=== PATIENT | female | born 1975 | race Caucasian/White ===

== ENCOUNTER → 2016-11-09 | Outpatient (CLI) | payer BC ==
--- NOTE | 2016-11-10 09:00 | MM ---
Reason for exam: screening (asymptomatic). Last mammogram was performed 2 years and 3 months ago. History: Patient history of endometrial cancer. Took hormonal contraceptives for 3 years. Physical Findings: A clinical breast exam by your physician is recommended on an annual basis and results should be correlated with mammographic findings. MG Screening Mammo w CAD Bilateral CC and MLO view(s) were taken. Prior study comparison: August 13, 2014, bilateral MG screening mammo w CAD. June 28, 2000, bilateral diagnostic mammogram. The breast tissue is heterogeneously dense. This may lower the sensitivity of mammography. No significant changes when compared with prior studies. ASSESSMENT: Negative, BI-RAD 1 RECOMMENDATION: Routine screening mammogram of both breasts in 1 year.
== END | disposition home or self-care (01) ==
LOC: RADMAMWWP 08:28
PROVIDERS: ATTEND Internal Medicine
DX: Z12.31 Encounter for screening mammogram for malignant neoplasm of breast (principal)

== ENCOUNTER → 2016-11-30 | Outpatient (CLI) | payer BC ==
[2016-11-23 15:09] VITALS: BMI 22.3
[2016-11-30 12:48] VITALS: BP 108/67; PULSE 70; RESP 18; TEMP 97.8
--- NOTE | 2016-11-30 13:39 | P.CONS ---
History of Present Illness - Reason for Consult Consult date: 11/30/16 - History of Present Illness This is an initial consultation visit for this 42 years old female with a chronic history of severe low back pain with radiation to the left lower extremity, [place] with burning sensation, this problem started May 2016, started after she fell, and she continued to have severe low back pain, she is currently on multiple pain medication and none of them helping enough to control her pain,, the pain is constant and increases with any activity, and is interfering with her ability to do activities of daily livings, she denies any change in the bowel movement or urination she denies any fever or night sweats, but she feels some weakness in her left lower extremity Past Medical History Past Medical History: No Reported History Additional Past Medical History / Comment(s): chronic back pain,steroids w/in 3 mos, cervical radiculopathy History of Any Multi-Drug Resistant Organisms: None Reported Past Surgical History: Hysterectomy Additional Past Surgical History / Comment(s): cervical fusion. 09-03-15 ant cervical decompression C ,REMOVAL OF HARDWARE. Past Anesthesia/Blood Transfusion Reactions: Motion Sickness Past Psychological History: No Psychological Hx Reported Smoking Status: Current every day smoker Past Alcohol Use History: None Reported, Rare Additional Past Alcohol Use History / Comment(s): smoker past 3 years 1 ppd Past Drug Use History: None Reported - Past Family History Mother Family Medical History: No Reported History Medications and Allergies Home Medications Medication Instructions Recorded Confirmed Type Carisoprodol [Soma] 350 mg PO TID PRN 02/03/15 11/30/16 History Gabapentin [Neurontin] 600 mg PO QID 02/03/15 11/30/16 History HYDROcodone/APAP 5-325MG [[place] 1 tab PO TID 11/23/16 11/30/16 History 5-325] Loratadine [Claritin] 10 mg PO DAILY 11/23/16 11/30/16 History Multivitamins, Thera [Multivitamin] 1 tab PO DAILY 11/23/16 11/30/16 History Allergies Allergy/AdvReac Type Severity Reaction Status Date / Time NSAIDS (Non-Steroidal Allergy Dyspnea Verified 11/23/16 14:55 Anti-Inflamma Penicillins Allergy Rash/Hives Verified 11/23/16 14:55 Physical Exam Vitals: Vital Signs Temp Pulse Resp BP Pulse Ox 11/30/16 12:42 97.8 F 70 18 108/67 98 Social history : smoker , NO ETOH , NO Illegal drugs use . Review of Systems : 1- Constitutional : no chills , no fever , no night sweats , 2- Ears : no ear discharge , no change in hearing 3-Nose, Mouth ,Throat ; no bleeding gums, no sore throat , no epistaxis , 4-Cardiovascular : Denies chest pain, , no orthopnea , no palpitation 5-Respiratory : Denies cough , no dyspnea , no hemoptysis 6-Gastrointestinal :, no change in bowel habits , no coffee- ground emesis . 7-Genitourinary : No hematuria , no discharge , no incontinence, 8-Musculoskeletal : No gait dysfunction , report low back pain , 9- Neurological : no ataxia , no tremor , no sezure , 10-Psychatric , no suicidal ideation no hallucination 11- Endocrine : no cold intolerence , no polyuria , no polydypsia , 12-Hematologic : no easy bleeding , no easy brusing , 13-Allergic / immunology : no angioedema , no wheezing ,no allergic rhinitis 14-Integumentary : no brttle nails , no change hair / nails , no foot/leg ulcers . Physical Examinations : 1-Constitutional : Cooperative , not in acute distress . 2-HEENT : nech ; supple , no Lymphadenopathy , no Thyromegaly , eyes , no icterus, no photophobia . ENT : , normal oropharynx , no Thrush 3- Respiratory : Chest clear to auscultations Bilaterally , no wheezing . 4- Cardiovascular : regular rate and rhythem , S1 , S2 , no S3 , no S4. 5- Gastrointestinal: abdomen soft no tenderness , no organomegally . 6- Genitourinary : De[place]red . 7-Integumentary : No cellulitis , no ulcers , normal skin turgor , no cyanotic . 8- neurologic : Cranial nerve II to XII intact , no focal neurological deffecit 9-psychatric : alert , oriented X 3 , appropriate affect , intact judgment and insight . 10-Lymphatic : no Lymphadenopathy. 11- musculoskeltal: normal gait , exams of the cervical spine = motor stregnth in the deltoid and biceps, normal right side , normal Left side exams of the Lumber spine = moter stegnth lower extremities , thigh and legs 5/5 Right side , 4/5 Left side deep tendon reflexes : normal Knee Jerk , normal ankle Jerk positive lumber facet Loading Test Range of motion of the lumbar spine Flexion 30 degrees, extension 10 degrees strait leg raising test , positive at 30 degree on the left side, right side 45 Fabere test positive RT and positive LT . Multiple trigger point identified in the lumbar paravertebral muscles Results Comments: MRI of the lumbar spine done 08/02/2016 L4 5 left lateral disc protrusion and facet hypertrophy, L5-S1 mild facet hypertrophy Assessment and Plan Plan: Assessment and plan = - Chronic low back pain secondary to lumbar degenerative disc disease , lumbar spondylosis with facet arthropathy without myelopathy , myofascial pain syndrome - diagnoses, prognosis, and treatment options including but not limited to physical therapy, surgical interventions, interventional therapies and medication management discussed with the patient and all questions answered to the patient's satisfaction. -medication refile = patient is getting medications refilled from her primary care and she denies any side effect of the medication -procedure= she could benefit from trigger point injections, and lumbar epidural steroid injection under fluoroscopy guidance (left sided paramedian approach at the L4-L5 levels ), procedure risk and benefits and alternatives discussed with the patient and she agreed with proceeding Time with Patient: Greater than 30
== END | disposition home or self-care (01) ==
LOC: PNWHC3 12:31
PROVIDERS: ATTEND Specialist
DX: G89.29 Other chronic pain (principal); M51.36 Other intervertebral disc degeneration, lumbar region; M47.816 Spondylosis without myelopathy or radiculopathy, lumbar region; M46.96 Unspecified inflammatory spondylopathy, lumbar region; M79.1 Myalgia; F17.200 Nicotine dependence, unspecified, uncomplicated; Z88.0 Allergy status to penicillin; Z88.6 Allergy status to analgesic agent; Z79.899 Other long term (current) drug therapy
CPT/HCPCS: 99211

== ENCOUNTER 2017-01-12 07:45 | Day surgery (SDC) | payer BC ==
[2017-01-07 15:15] VITALS: BMI 23.8
[2017-01-12 08:42] VITALS: RESP 18; TEMP 97.8
[2017-01-12] MEDS ORDERED: LACTATED RINGERS 1,000 ML IV ONE (08:52)
[2017-01-12] MEDS ORDERED: LIDOCAINE 1% 20 ML VIAL (10MG/ML) FOR IV START INTRADERMA ONE (08:52)
[2017-01-12] MEDS ORDERED: LACTATED RINGERS 1,000 ML IV SCH (09:15)
[2017-01-12] MEDS ORDERED: MIDAZOLAM 2 MG/2 ML VIAL ONE (09:36)
[2017-01-12] MEDS ORDERED: fentaNYL (PF) 50 MCG/ML 2 ML AMP ONE (09:36)
[2017-01-12] MEDS ORDERED: TRIAMCINOLONE ACETONIDE 40 MG/ML 1 ML VIAL ONE (09:36)
[2017-01-12] MEDS ORDERED: IOHEXOL 180 MG/ML 1 ML ML ONE (09:36)
[2017-01-12] MEDS ORDERED: BUPIVACAINE (PF) 0.25% 30 ML VIAL ONE (09:36)
--- NOTE | 2017-01-12 09:51 | P.PCN ---
Date of Procedure: 01/12/17 Preoperative Diagnosis: Lumbar radiculopathy Myofascial pain Postoperative Diagnosis: Same as above Procedure(s) Performed: Lumbar epidural steroid injection under fluoroscopic guidance Anesthesia: MAC Surgeon: Joselo Hook Pathology: none sent Condition: stable Disposition: PACU Description of Procedure: The patient was seen in preoperative holding area consent was obtained then she was brought into the procedure room and placed in prone position. Skin was prepped with Betadine 3 and draped in a sterile manner. Lidocaine 1% was used to numb the skin over the target point was at the L4 5 level in the left paramedian approach. I used 20-gauge 3-1/2 inch ToOPTIMIZERxy epidural needle with loss -of-resistance to air to identify the epidural space. There was positive loss- of-resistance to air at about 5 cm from skin negative aspiration for any CSF or blood negative paresthesia. I then injected 1 mL of Omnipaque which showed typical epidurogram on AP and lateral views of fluoroscopy after that I injected 80 mg of Kenalog +2 MLS of Marcaine 0.25% +4 MLS of preservative free normal saline to a total volume of 7 MLS in epidural space. Patient tolerated procedure well. Then trigger point injections were done on the lumbar paravertebral musculature 1 on the right unknown on the left side of the mid lumbar spine using 2 mL of Marcaine 0.25% +25-gauge needle.
[2017-01-12] MEDS ORDERED: IV FLUID CONTINUATION 1,000 ML IV ONE (09:56)
--- NOTE | 2017-01-12 10:06 | FL ---
EXAMINATION TYPE: FL guided pain mgmt statistic DATE OF EXAM: 01/12/2017 9:50 AM CLINICAL HISTORY: Low back pain. TECHNIQUE: Fluoroscopy. COMPARISON: None. FINDINGS: Fluoroscopic guidance was provided during pain relief procedure performed by Dr. Hook. A total of 3 seconds of fluoroscopic time was utilized during the procedure and two spot images are acquired. Images acquired shows needle localization at level of L4-L5 epidural space from posterior approach. IMPRESSION: As Above.
[2017-01-12 10:12] VITALS: BP 100/70; PULSE 68
--- NOTE | 2017-01-18 14:35 | CDI ---
Documentation Clarification Dr Hook, We need you to dictate addendum to procedure note to clarify how many trigger points were injected. Your dictation states " 1 on the right and UNKNOWN on the left." I think that Filiberto heard it wrong and it should maybe be 1 on the left. Please do an addendum to your procedure note to correct this. Thank you, Ariana Cantro [employer] Official, Cordelia [phone] [facility]
== END 2017-01-12 10:30 | disposition home or self-care (01) ==
LOC: ORPAIN 07:45
PROVIDERS: ATTEND Anesthesiology
DX: M54.16 Radiculopathy, lumbar region (principal); M79.1 Myalgia; Z88.0 Allergy status to penicillin; Z88.6 Allergy status to analgesic agent
CPT/HCPCS: 20553; 62323; J2250; J3301; Q9965; J3010

== ENCOUNTER 2017-02-14 06:35 | Day surgery (SDC) | payer BC ==
[2017-02-10 13:32] VITALS: BMI 23.8
[2017-02-14 07:40] VITALS: TEMP 97.4
[2017-02-14] MEDS ORDERED: LACTATED RINGERS 1,000 ML IV SCH (08:00)
[2017-02-14] MEDS ORDERED: BUPIVACAINE (PF) 0.5% 30 ML VIAL ONE (08:09)
[2017-02-14] MEDS ORDERED: MIDAZOLAM 2 MG/2 ML VIAL ONE (08:09)
[2017-02-14] MEDS ORDERED: fentaNYL (PF) 50 MCG/ML 2 ML AMP ONE (08:09)
[2017-02-14] MEDS ORDERED: TRIAMCINOLONE ACETONIDE 40 MG/ML 1 ML VIAL ONE (08:09)
[2017-02-14] MEDS ORDERED: IOHEXOL 180 MG/ML 1 ML ML ONE (08:09)
[2017-02-14] MEDS ORDERED: IV FLUID CONTINUATION 550 ML IV ONE (08:29)
[2017-02-14 08:45] VITALS: BP 95/50; RESP 18
[2017-02-14 09:08] VITALS: PULSE 63
--- NOTE | 2017-02-14 11:59 | FL ---
Fluoroscopy INDICATION: Pain FINDINGS: Fluoroscopy time: 8 seconds. Images obtained: 3. IMPRESSIONS: 1. Documentation of fluoroscopy.
--- NOTE | 2017-02-22 08:05 | P.PCN ---
Date of Procedure: 02/14/17 Surgeon: Alfred Rendon Pathology: none sent Condition: stable Disposition: PACU Description of Procedure: PREOPERATIVE DIAGNOSIS: 1-Lumbar radiculitis. 2-Myofascial pain syndrome, bilateral paravertebral muscles and quadratus lumborum POSTOPERATIVE DIAGNOSIS: same PROCEDURE 1. Lumbar epidural steroid injection under fluoroscopic guidance at the L4-L5 level. 2. Lumbar epidurogram. 3. Lumbar paravertebral muscle and quadratus lumborum trigger point injections ( total of 4). ANESTHESIA: Local with 1% lidocaine; IV sedation with Versed/fentanyl. EBL: Minimal PROCEDURE INDICATION: The patient with low back pain and radiculitis symptoms unresponsive to conservative treatment. Fluoroscopy was used to optimize visualization of the needle placement and to maximize safety. PROCEDURE DESCRIPTION / TECHNIQUE: The patient was seen and identified in the preoperative area. Risks, benefits, complications, and alternatives were discussed with the patient, including but not limited to bleeding, infection, nerve damage, allergic reactions to medications, and incomplete pain relief. The patient agreed to proceed with the procedure and signed the consent after all questions were answered. IV was started, and vital signs were stable. Patient was taken to the OR and time out was completed to confirm patient position, procedure, laterality of pain, and allergies. The patient was placed in the prone position on procedure table and a pillow was placed under the abdomen to reduce lumbar lordosis. The lumbosacral area was prepped and draped in the usual sterile fashion. Critical pause was taken. Vital signs were closely monitored during the procedure. Conscious sedation was used during the procedure to decrease patients anxiety. Using anterior-posterior fluoroscopy, the L4-L5 interlaminar space was identified and the skin over this site was marked and then infiltrated with 1% lidocaine subcutaneously. Subsequently, a 20-gauge Tuohy epidural needle was inserted and advanced toward the epidural space using the Loss of resistance technique and guided by AP and lateral fluoroscopy. The correct needle position in the epidural space was verified with the injection of 2 mL of the water soluble contrast dye Omnipaque 300 contrast and observing an excellent epidurogram with the epidural spread of the dye, after negative aspiration for blood and CSF and in the absence of paresthesias. Again after negative aspiration, a 8 ml mixture containing 40 mg of Kenalog and 5 ml of preservative free Normal Saline, and 2 ml of preservative free lidocaine 1% solution was injected and a washout of epidurogram was seen. Needle was withdrawn intact, skin was cleansed, and bandages were applied. After this, each of the previously marked areas over the trigger points in the low back was prepped and draped in the usual sterile fashion. Each point was then infiltrated with 1% plain lidocaine using a 25g needle. After this, each point was entered with the same 25g needle and after a catch was felt, dry needling was performed. After negative aspiration at each point, 1 ml of a total of 4 ml (combination of 3 ml 0.5% bupivacaine and 40 mg Kenalog was injected in each area. Needle was withdrawn intact each time, skin was cleansed , and bandages were applied. COMPLICATIONS: None COMMENTS: DISPOSITION / PLANS: The patient was placed in a supine position and transferred to the recovery area in a stable condition for observation. There was no evidence of lower extremity motor or sensory deficit after the procedure. Patient was discharged from the recovery room after meeting discharge criteria. Home discharge instructions were given to the patient by the staff. The patient was reexamined prior to discharge and there were no issues. The patient will schedule a third injection in approximately 2-4 weeks.
== END 2017-02-14 09:09 | disposition home or self-care (01) ==
LOC: ORPAIN 06:35
PROVIDERS: ATTEND Anesthesiology
DX: G89.29 Other chronic pain (principal); M54.16 Radiculopathy, lumbar region; M79.1 Myalgia; F32.9 Major depressive disorder, single episode, unspecified; F41.9 Anxiety disorder, unspecified; Z72.0 Tobacco use; Z79.891 Long term (current) use of opiate analgesic; Z79.899 Other long term (current) drug therapy; Z88.6 Allergy status to analgesic agent; Z88.0 Allergy status to penicillin
CPT/HCPCS: 20553; 62323; J2250; J3301; Q9965; J3010

== ENCOUNTER 2017-02-22 14:26 | Emergency (ER) | payer BC ==
[2017-02-22 14:37] VITALS: RESP 18
[2017-02-22] MEDS ORDERED: HYDROmorphone 1 MG/ML 1 ML SYRINGE IVP STA ×2 (14:55→15:45)
[2017-02-22] MEDS ORDERED: DIAZEPAM 5 MG/ML 2 ML SYRINGE IVP STA (14:55)
--- NOTE | 2017-02-22 15:14 | ED ---
Back Pain HPI - General Chief Complaint: Back Pain/Injury Stated Complaint: LOW BACK PAIN, NAUSEA Time Seen by Provider: 02/22/17 14:40 Source: patient, RN notes reviewed Mode of arrival: wheelchair Limitations: no limitations - History of Present Illness Initial Comments: This a 41-year-old female presents emergency Department chief complaint back pain. Patient states that she was walking up her steps and had sudden onset of low back pain in the middle. Patient states that radiates down both of her legs to her feet. Patient states she has chronic back problems in which she's been told she's had herniated disc at L4-L5 and L5-S1 in spinal stenosis. Patient states she sees pain management and discharge injections one week ago. She states right after the pain was onset that she had sensation that she needs to urinate and felt that she may have leaked broke was not sure. Now she states that she is unable to urinate. She's unsure if this is secondary to pain. She has increased pain with range of motion. Patient also states that she has some abdominal discomfort. Patient had some nausea vomiting secondary to pain. Patient is on [place] currently. Patient denies any saddle anesthesias or lower extremity paresthesias. - Related Data Home Medications Medication Instructions Recorded Confirmed Gabapentin [Neurontin] 600 mg PO BID 02/03/15 02/22/17 Multivitamins, Thera [Multivitamin] 1 tab PO DAILY 11/23/16 02/22/17 HYDROcodone/APAP 7.5-325MG [[place] 1 tab PO TID 02/10/17 02/22/17 7.5-325] Acetaminophen Tab [Tylenol Tab] 650 mg PO Q6H PRN 02/22/17 02/22/17 Previous Rx's Medication Instructions Recorded Cyclobenzaprine [Flexeril] 10 mg PO TID PRN #15 tab 02/22/17 methylPREDNISolone [Medrol Dose 4 mg PO DIRECTED #1 pack 02/22/17 Pack] Allergies Allergy/AdvReac Type Severity Reaction Status Date / Time NSAIDS (Non-Steroidal Allergy Dyspnea Verified 02/22/17 15:32 Anti-Inflamma Penicillins Allergy Rash/Hives Verified 02/22/17 15:32 Review of Systems ROS Statement: Those systems with pertinent positive or pertinent negative responses have been documented in the HPI. ROS Other: All systems not noted in ROS Statement are negative. Past Medical History Past Medical History: No Reported History Additional Past Medical History / Comment(s): chronic back pain, migraines, degenerative and herniated discs, spinal stenosis History of Any Multi-Drug Resistant Organisms: None Reported Past Surgical History: Back Surgery, Hysterectomy, Tonsillectomy Additional Past Surgical History / Comment(s): cervical fusion and cervical decompression C 4-5-6, REMOVAL OF HARDWARE. and addition of hardware Past Anesthesia/Blood Transfusion Reactions: Motion Sickness Past Psychological History: Anxiety Smoking Status: Current every day smoker Past Alcohol Use History: None Reported Additional Past Alcohol Use History / Comment(s): smoker past 3 years, 1/2 ppd Past Drug Use History: None Reported - Past Family History Mother Family Medical History: No Reported History Father Family Medical History: No Reported History General Exam Limitations: no limitations General appearance: alert, in no apparent distress Head exam: Present: atraumatic, normocephalic, normal inspection Respiratory exam: Present: normal lung sounds bilaterally. Absent: respiratory distress, wheezes, rales, rhonchi, stridor Cardiovascular Exam: Present: regular rate, normal rhythm, normal heart sounds. Absent: systolic murmur, diastolic murmur, rubs, gallop, clicks GI/Abdominal exam: Present: soft, tenderness (Mild suprapubic), normal bowel sounds. Absent: distended, guarding, rebound, rigid Back exam: Present: tenderness (Tenderness of lumbar spine), paraspinal tenderness, vertebral tenderness. Absent: full ROM (decreased range of motion secondary to pain), CVA tenderness (R), CVA tenderness (L) Neurological exam: Present: alert, oriented X3, CN II-XII intact, reflexes normal. Absent: motor sensory deficit Skin exam: Present: warm, dry, intact, normal color. Absent: rash Course Vital Signs 02/22/17 14:35 Temperature 98.1 F Pulse Rate 104 H Respiratory 18 Rate Blood Pressure 117/67 O2 Sat by Pulse 100 Oximetry - Reevaluation(s) Reevaluation #1: 02/22/17 17:00 Patient was able to urinate unknown no difficulty after receiving pain medication. Medical Decision Making - Medical Decision Making 41-year-old female presented for back pain. Patient has no acute changes on CT. Patient able to urinate by self. Patient was for she needs a rectal exam to check rectal tone though she declines. Patient will be discharged follow-up with her pain management/surgeon.. - Lab Data Result diagrams: 02/22/17 15:07 02/22/17 15:07 Lab Results 02/22/17 02/22/17 02/22/17 Range/Units 15:07 15:07 15:41 WBC 13.6 H (3.8-10.6) k/uL RBC 4.62 (3.80-5.40) m/uL Hgb 15.4 (11.4-16.0) gm/dL Hct 44.9 (34.0-46.0) % MCV 97.3 (80.0-100.0) fL MCH 33.2 (25.0-35.0) pg MCHC 34.2 (31.0-37.0) g/dL RDW 13.6 (11.5-15.5) % Plt Count 421 (150-450) k/uL Neutrophils % 76 % Lymphocytes % 18 % Monocytes % 4 % Eosinophils % 1 % Basophils % 0 % Neutrophils # 10.3 H (1.3-7.7) k/uL Lymphocytes # 2.5 (1.0-4.8) k/uL Monocytes # 0.5 (0-1.0) k/uL Eosinophils # 0.1 (0-0.7) k/uL Basophils # 0.0 (0-0.2) k/uL Sodium 140 (137-145) mmol/L Potassium 3.8 (3.5-5.1) mmol/L Chloride 107 (98-107) mmol/L Carbon Dioxide 21 L (22-30) mmol/L Anion Gap 12 mmol/L BUN 15 (7-17) mg/dL Creatinine 0.51 L (0.52-1.04) mg/dL Est GFR (MDRD) Af Amer >60 (>60 ml/min/1.73 sqM) Est GFR (MDRD) Non-Af >60 (>60 ml/min/1.73 sqM) Glucose 100 H (74-99) mg/dL Calcium 10.3 H (8.4-10.2) mg/dL Urine Color Light Yellow Urine Appearance Clear (Clear) Urine pH 6.5 (5.0-8.0) Ur Specific [place] 1.005 (1.001-1.035) Urine Protein Negative (Negative) Urine Glucose (UA) Negative (Negative) Urine Ketones Trace H (Negative) Urine Blood Negative (Negative) Urine Nitrite Negative (Negative) Urine Bilirubin Negative (Negative) Urine Urobilinogen <2.0 (<2.0) mg/dL Ur Leukocyte Esterase Negative (Negative) Disposition Clinical Impression: Strain of lumbar region Disposition: HOME SELF-CARE Condition: Stable Instructions: Acute Low Back Pain (ED) Additional Instructions: Please return to the Emergency Department if symptoms worsen or any other concerns. Prescriptions: Cyclobenzaprine [Flexeril] 10 mg PO TID PRN #15 tab PRN Reason: Muscle Spasm methylPREDNISolone [Medrol Dose Pack] 4 mg PO DIRECTED #1 pack Time of Disposition: 17:04
[2017-02-22 15:17] LABS: Basophils % (A) 0 %; CH 33.5; CHCM 34.6; Eosinophils # (A) 0.1 k/uL (0-0.7); Eosinophils % (A) 1 %; HCT 44.9 % (34.0-46.0); HDW 2.14; HGB 15.4 gm/dL (11.4-16.0); Luc # (Auto) 0.15; Luc % (Auto) 1; Lymphocytes # (A) 2.5 k/uL (1.0-4.8); Lymphocytes % (A) 18 %; MCH 33.2 pg (25.0-35.0); MCHC 34.2 g/dL (31.0-37.0); MCV 97.3 fL (80.0-100.0); Mean Platelet Volume 6.8; Monocytes # (A) 0.5 k/uL (0-1.0); Monocytes % (A) 4 %; Neutrophils # (A) 10.3 k/uL (1.3-7.7); Neutrophils % (A) 76 %; RBC 4.62 m/uL (3.80-5.40); RDW 13.6 % (11.5-15.5); WBC 13.6 k/uL (3.8-10.6); WBC (Perox) 13.63
[2017-02-22 15:31] LABS: Anion Gap 12 mmol/L; Blood Urea Nitrogen 15 mg/dL (7-17); Calcium 10.3 mg/dL (8.4-10.2); Carbon Dioxide 21 mmol/L (22-30); Chloride 107 mmol/L (98-107); Glucose 100 mg/dL (74-99); Non-African American GFR(MDRD) >60 (>60 ml/min/1.73 sqM); Potassium 3.8 mmol/L (3.5-5.1); Sodium 140 mmol/L (137-145)
[2017-02-22 16:01] LABS: Appearance,Urine Clear (Clear); Bilirubin,Urine Negative (Negative); Glucose,Urine (UA) Negative (Negative); Ketones,Urine Trace (Negative); Leukocyte Esterase,Urine Negative (Negative); Nitrite,Urine Negative (Negative); PH, Urine 6.5 (5.0-8.0); Protein,Urine Negative (Negative); Specific Gravity,Urine 1.005 (1.001-1.035); UA Billing (MACRO vs. MICRO) CHEM; Urobilinogen,Urine <2.0 mg/dL (<2.0)
--- NOTE | 2017-02-22 16:34 | CT ---
EXAMINATION TYPE: CT lumbar spine wo con DATE OF EXAM: 02/22/2017 4:24 PM COMPARISON: NONE HISTORY: Low back pain CT DLP: 344.8 mGycm Automated exposure control for dose reduction was used. FINDINGS: There are 5 lumbar type vertebra identified. Lumbar spine shows satisfactory alignment without eviden ce of acute fracture or dislocation. Vertebral body heights and disc space heights are maintained. No large posterior disc herniations are seen on sagittal images. No significant spurring is present. Review of axial images shows mild facet arthropathy L3-L4 through L5-S1 levels. Spinal canal is prese rved and bilateral neural foramina are patent. IMPRESSION: SOME MILD MULTILEVEL FACET ARTHROPATHY IN THE MID TO LOWER LUMBAR SPINE OTHERWISE UNREMARKABLE STUDY.
[2017-02-22 17:13] VITALS: BP 97/60; PULSE 77; TEMP 96.9
== END 2017-02-22 17:13 | disposition home or self-care (01) ==
LOC: EC 14:26
DX: S39.012A Strain of muscle, fascia and tendon of lower back, initial encounter (principal); G89.29 Other chronic pain; F17.200 Nicotine dependence, unspecified, uncomplicated; Z79.891 Long term (current) use of opiate analgesic; Z79.899 Other long term (current) drug therapy; Z88.0 Allergy status to penicillin; Z88.6 Allergy status to analgesic agent; X58.XXXA Exposure to other specified factors, initial encounter; Y93.01 Activity, walking, marching and hiking
CPT/HCPCS: 51798; 36415; 80048; 85025; 81003; 72131; 99284; 96374; 96375; 96376; J3360; J1170

== ENCOUNTER → 2017-02-28 | Outpatient (CLI) | payer BC ==
[2017-02-28 12:07] VITALS: BP 129/82; PULSE 109; RESP 18; TEMP 98.8
--- NOTE | 2017-02-28 12:45 | P.CONS ---
History of Present Illness - Reason for Consult Consult date: 02/28/17 - History of Present Illness This is for visit for this 42 years old female with a chronic history of severe low back pain, diagnosed with lumbar degenerative disc disease and lumbar spondylosis, rib-bearing lumbar epidural steroid injections 2 , she continued to have severe low back pain, which is increased with any activity and interfering with her quality of life, the intensity of the pain is 8-10 over 10 , on the current pain medication is not helping her to control her pain she is currently on Neurontin 600 mg once a day (she was on 600 mg every 6 hours before ), [place] 7.5/325 every 6 hours, she denies any side effect of the medication she denies any excessive drowsiness sleepiness and she reports no fever or night sweats,, no change in bowel movement or urination Past Medical History Past Medical History: No Reported History Additional Past Medical History / Comment(s): chronic back pain, migraines, degenerative and herniated discs, spinal stenosis History of Any Multi-Drug Resistant Organisms: None Reported Past Surgical History: Back Surgery, Hysterectomy, Tonsillectomy Additional Past Surgical History / Comment(s): cervical fusion and cervical decompression C 4-5-6, REMOVAL OF HARDWARE. and addition of hardware Past Anesthesia/Blood Transfusion Reactions: Motion Sickness Past Psychological History: Anxiety Smoking Status: Current every day smoker Past Alcohol Use History: None Reported Additional Past Alcohol Use History / Comment(s): smoker past 3 years, 1/2 ppd Past Drug Use History: None Reported - Past Family History Mother Family Medical History: No Reported History Father Family Medical History: No Reported History Medications and Allergies Home Medications Medication Instructions Recorded Confirmed Type Gabapentin [Neurontin] 600 mg PO DAILY 02/03/15 02/28/17 History Multivitamins, Thera [Multivitamin] 1 tab PO DAILY 11/23/16 02/28/17 History HYDROcodone/APAP 7.5-325MG [[place] 1 tab PO TID 02/10/17 02/28/17 History 7.5-325] Acetaminophen Tab [Tylenol Tab] 650 mg PO Q6H PRN 02/22/17 02/28/17 History Cyclobenzaprine [Flexeril] 1 tab PO BID 02/28/17 02/28/17 History Allergies Allergy/AdvReac Type Severity Reaction Status Date / Time NSAIDS (Non-Steroidal Allergy Dyspnea Verified 02/28/17 11:53 Anti-Inflamma Penicillins Allergy Rash/Hives Verified 02/28/17 11:53 Physical Exam Vitals: Vital Signs Temp Pulse Resp BP Pulse Ox 02/28/17 11:59 98.8 F 109 H 18 129/82 97 Intake and Output 02/27/17 02/28/17 02/28/17 22:59 06:59 14:59 Other: Weight 54.431 kg Patient Weight 03/01/17 06:59 Weight 54.431 kg Physical Examinations : 1-Constitutiona : Cooperative , not in acute distress . 2-HEENT : nech ; supple , no Lymphadenopathy , no Thyromegaly , normal thyroid size . eyes : no ptosis , no icterus, no photophobia . ENT : normal of hearing , normal oropharynx , no Thrush . 3- Respiratory : Chest clear to auscultations Bilaterally , no wheezing , no Rhonchi . 4- Cardiovascular : regular rate and rhythem , S1 , S2 , no S3 , no S4. 5- Gastrointestinal : abdomen soft no tenderness , bowel sounds positive all four quadrents , no organomegally . 6- Genitourinary : Defferred . 7- neurologic : Cranial nerve II to XII intact , no focal neurological deffecit . 8-psychatric : alert , oriented X 3 , appropriate affect , intact judgment and insight . 9-Lymphatic : no Lymphadenopathy . 10- musculoskeltal : exams of the Lumber spine = normal moter stegnth lower extremities ,thigh and legs .4/5 deep tendon reflexes : normal Knee Jerk , normal ankle Jerk . positive lumber facet Loading Test strait leg raising test positive at 30 degree , LT , , positive at 45 on the right side Fabere test positive RT and positive LT . Sever tenderness over the Sacroiliac joint on the left side Results Labs: Computed tomography scan of the lumbar spine done 02/22/2017= multilevel lumbar facet arthropathy Assessment and Plan Plan: Assessment and plan = - Chronic low back pain secondary to lumbar degenerative disc disease , lumbar spondylosis with facet arthropathy without myelopathy , and left sacroiliitis she continue to have pain after lumbar epidural steroid injections x2 - diagnoses, prognosis, and treatment options including but not limited to physical therapy, surgical interventions, interventional therapies and medication management including narcotics and adjuvant medication were discussed with the patient and all questions answered to the patient's satisfaction. -medication refile = increase Neurontin dose to 600 mg twice a day for one week then after that she will get 600 mg 3 times a day -procedure= patient will be scheduled to have diagnostic medial branch block lumbar area at L3/L4 5/L5-S1 to the diagnostic block twice and if she benefited then we'll proceed with a radiofrequency ablation of the medial branch lumbar area Time with Patient: Less than 30
== END ==
LOC: PNWHC3 11:47
PROVIDERS: ATTEND Specialist
DX: M51.36 Other intervertebral disc degeneration, lumbar region (principal); M47.816 Spondylosis without myelopathy or radiculopathy, lumbar region; M46.86 Other specified inflammatory spondylopathies, lumbar region; M46.1 Sacroiliitis, not elsewhere classified; G89.29 Other chronic pain; Z79.52 Long term (current) use of systemic steroids
CPT/HCPCS: 99211

== ENCOUNTER 2017-03-11 10:54 | Day surgery (SDC) | payer BC ==
[2017-03-10 08:23] VITALS: BMI 22.4
[~2017-03-11 10:54] MED LIST: LACTATED RINGERS 1,000 ML IV SCH
[2017-03-11 12:05] VITALS: TEMP 98
[2017-03-11] MEDS ORDERED: LIDOCAINE 1% 20 ML VIAL (10MG/ML) FOR IV START INTRADERMA ONE (12:05)
[2017-03-11] MEDS ORDERED: MIDAZOLAM 2 MG/2 ML VIAL ONE (12:25)
[2017-03-11] MEDS ORDERED: TRIAMCINOLONE ACETONIDE 40 MG/ML 1 ML VIAL ONE (12:25)
[2017-03-11] MEDS ORDERED: fentaNYL (PF) 50 MCG/ML 2 ML AMP ONE (12:25)
[2017-03-11] MEDS ORDERED: BUPIVACAINE (PF) 0.5% 30 ML VIAL ONE (12:25)
--- NOTE | 2017-03-11 12:46 | P.PCN ---
Date of Procedure: 03/11/17 Procedure(s) Performed: PREOPERATIVE DIAGNOSIS : 1- Lumbar spondylosis with Facet Arthropathy without myelopathy . 2- Lumber degenerative disc disease POSTOPERATIVE DIAGNOSIS: 1- Lumbar spondylosis with Facet Arthropathy without myelopathy . 2- Lumber degenerative disc disease PROCEDURE: Diagnostic bilateral L3 -4 , L4 -5 , and L5-S1 medial branch block under fluoroscopy ANESTHESIA: Local with 1% lidocaine 6 ml ; IV sedation with Versed 2 mg and Fentanyl 100 mcg. EBL: Minimal COMPLICATION: None. IV FLUIDS: 100 mL of normal saline. PROCEDURE INDICATION: Chronic low back pain secondary to Facet arthropathy unresponsive to conservative treatment. PROCEDURE DESCRIPTION: the patient was seen and identified in the preop holding area , risks and benefits and possible complications of the procedure and alternative were discussed with the patient, and the patient agreed to proceed with the procedure and signed the consent IV was started and vital signs monitored during the procedure and fluoroscopy was used to maximize the benefit and accuracy of the needle placement, and sedation was given to decrease patient anxiety, patient was taken to the procedure room and placed in prone position vital signs monitored in the back prepped with chlorhexidine X3 then under strict sterile technique using a right oblique fluoroscopy ,the junction of the transverse process and the superior articulating process of the right L3- 4 , L4- 5, and L5-S1 vertebra which corresponding to the fluoroscopy image of the eye of the Uli dog on the block side for the medial branches and subsequently , after local infiltration of skin and subcu tissuies with lidocaine 1% one mL at each level ,then 22- gauge Quincke-type needles , 3 needle was used , each one of them placed at the junction of the base of the transverse process and the superior articular process at the appropriate level, and the needle was advanced until the periosteum contacted, needle placement confirmed with AP oblique and lateral view and after appropriate needle placement confirmed, and after negative aspiration for heme and CSF and there was no paresthesia 1-1/2 mL of Marcaine 0.5% mixed with 20 mg Kenalog , then half mL injected at each level after negative aspiration the needle subsequently removed and the same procedure repeated for the left side at left side at L3-4, L4- 5 and L5-S1 levels. At the end of the procedure and the needles removed and a bandage applied after the skin was cleaned the cleaning solution patient taken to recovery room in stable condition and monitors in the recovery room for 20-30 minutes and discharged home in stable condition after discharge criteria met and patient will follow up with the pain clinic in 2-4 weeks
[2017-03-11] MEDS ORDERED: IV FLUID CONTINUATION 1,000 ML IV ONE (12:52)
[2017-03-11 12:55] VITALS: RESP 18
[2017-03-11 13:13] VITALS: BP 112/65; PULSE 68
--- NOTE | 2017-03-11 13:16 | FL ---
Fluoroscopy History: FL guided pain mgmt 8 SEC fluoro
== END 2017-03-11 13:24 | disposition home or self-care (01) ==
LOC: ORPAIN 10:54
PROVIDERS: ATTEND Specialist
DX: G89.29 Other chronic pain (principal); M51.36 Other intervertebral disc degeneration, lumbar region; M47.816 Spondylosis without myelopathy or radiculopathy, lumbar region; M46.96 Unspecified inflammatory spondylopathy, lumbar region; Z88.0 Allergy status to penicillin; Z88.6 Allergy status to analgesic agent
CPT/HCPCS: 64493; 64494; 64495; 99152; J2250; J3301; J3010

== ENCOUNTER 2017-04-11 07:54 | Day surgery (SDC) | payer BC ==
[2017-04-07 13:58] VITALS: BMI 22.4
[2017-04-11 08:09] VITALS: TEMP 97.9
[2017-04-11] MEDS ORDERED: LIDOCAINE 1% 20 ML VIAL (10MG/ML) FOR IV START INTRADERMA ONE (08:18)
[2017-04-11] MEDS ORDERED: BUPIVACAINE (PF) 0.5% 30 ML VIAL ONE (08:49)
[2017-04-11] MEDS ORDERED: MIDAZOLAM 2 MG/2 ML VIAL ONE (08:49)
[2017-04-11] MEDS ORDERED: fentaNYL (PF) 50 MCG/ML 2 ML AMP ONE (08:49)
[2017-04-11] MEDS ORDERED: DEXAMETHASONE SOD PHOSPHATE 10 MG/ML 1 ML VIAL ONE (08:49)
--- NOTE | 2017-04-11 09:17 | P.PCN ---
Date of Procedure: 04/11/17 Preoperative Diagnosis: Postoperative Diagnosis: Procedure(s) Performed: PREOPERATIVE DIAGNOSIS : 1- Lumbar spondylosis with Facet Arthropathy without myelopathy . 2- Lumber degenerative disc disease POSTOPERATIVE DIAGNOSIS: 1- Lumbar spondylosis with Facet Arthropathy without myelopathy . 2- Lumber degenerative disc disease PROCEDURE: Diagnostic bilateral L3 -4 , L4 -5 , and L5-S1 medial branch block under fluoroscopy#2 ANESTHESIA: Local with 1% lidocaine 6 ml ; IV sedation with Versed 2 mg and Fentanyl 100 mcg. EBL: Minimal COMPLICATION: None. IV FLUIDS: 100 mL of normal saline. PROCEDURE INDICATION: Chronic low back pain secondary to Facet arthropathy unresponsive to conservative treatment. PROCEDURE DESCRIPTION: the patient was seen and identified in the preop holding area , risks and benefits and possible complications of the procedure and alternative were discussed with the patient, and the patient agreed to proceed with the procedure and signed the consent IV was started and vital signs monitored during the procedure and fluoroscopy was used to maximize the benefit and accuracy of the needle placement, and sedation was given to decrease patient anxiety, patient was taken to the procedure room and placed in prone position vital signs monitored in the back prepped with chlorhexidine X3 then under strict sterile technique using a right oblique fluoroscopy ,the junction of the transverse process and the superior articulating process of the right L3- 4 , L4- 5, and L5-S1 vertebra which corresponding to the fluoroscopy image of the eye of the Uli dog on the block side for the medial branches and subsequently , after local infiltration of skin and subcu tissuies with lidocaine 1% one mL at each level ,then 22- gauge Quincke-type needles , 3 needle was used , each one of them placed at the junction of the base of the transverse process and the superior articular process at the appropriate level, and the needle was advanced until the periosteum contacted, needle placement confirmed with AP oblique and lateral view and after appropriate needle placement confirmed, and after negative aspiration for heme and CSF and there was no paresthesia 1-1/2 mL of Marcaine 0.5% mixed with 5 mg Dexamethasone , then half mL injected at each level after negative aspiration the needle subsequently removed and the same procedure repeated for the left side at left side at L3-4, L4- 5 and L5-S1 levels. At the end of the procedure and the needles removed and a bandage applied after the skin was cleaned the cleaning solution patient taken to recovery room in stable condition and monitors in the recovery room for 20-30 minutes and discharged home in stable condition after discharge criteria met and patient will follow up with the pain clinic in 2-4 weeks Implants: Indications for Procedure: Operative Findings: Description of Procedure:
[2017-04-11] MEDS ORDERED: IV FLUID CONTINUATION 550 ML IV ONE (09:23)
[2017-04-11 09:29] VITALS: RESP 18
--- NOTE | 2017-04-11 09:34 | FL ---
Fluoroscopy INDICATION: Pain FINDINGS: Fluoroscopy time: 10 seconds. Images obtained: 4. IMPRESSIONS: 1. Documentation of fluoroscopy.
[2017-04-11 10:09] VITALS: BP 96/53; PULSE 71
== END 2017-04-11 10:29 | disposition home or self-care (01) ==
LOC: ORPAIN 07:54
PROVIDERS: ATTEND Specialist
DX: G89.29 Other chronic pain (principal); M46.96 Unspecified inflammatory spondylopathy, lumbar region; M51.36 Other intervertebral disc degeneration, lumbar region; M47.816 Spondylosis without myelopathy or radiculopathy, lumbar region; Z88.6 Allergy status to analgesic agent; Z88.0 Allergy status to penicillin
CPT/HCPCS: 64493; 64494; 64495; 99152; J2250; J1100; J3010

== ENCOUNTER → 2017-05-30 | Outpatient (CLI) | payer BC ==
[2017-05-30 12:37] VITALS: BP 104/65; PULSE 83; RESP 18
--- NOTE | 2017-05-30 12:54 | P.PN ---
Progress Note - Text Patient returns for followup for chronic back pain with radiation to both legs. Patient recently underwent bilateral lumbar MBB x 2, which each provided good relief for 5-6 days' interval; patient was able to vacuum for three times longer than normal and able to go up and down her stairs without pain, which she states is usually never the case for her. Patient continues on Lottie and tramadol medications for pain from PCP with good relief. Patient denies adverse drug effects from medications. Today, pt denies new-onset weakness, bowel/bladder incontinence, or any other signs or symptoms of cauda equina syndrome. There are no signs of acute intoxication, and no indications of medication diversion or overuse. In addition to above, 13-point review of systems is also negative for chest pain , shortness of breath, changes in vision, changes in hearing, new onset weakness , abdominal pain, diarrhea, extreme fatigue, malaise, fever, skin changes, homicidal or suicidal ideation, or bowel or bladder incontinence. Vital Signs: Reviewed in EMR Gen: WDWN, AAOx3, NAD HEENT: NCAT, EOMI, hearing grossly normal Pulm: resp unlabored Abd: soft, NT, ND Neck: supple, trachea midline ROM in flexion lumbar spine: reduced ROM in extension lumbar spine: reduced Lumbar paravertebral tenderness: + Facet loading: + bilateral, L > R SI joint tenderness: + bilateral, L > R Grant's test: + L > R Straight leg raise: neg Neuro: CN II-XII grossly intact, muscle strength lower extremities PRESERVED Imaging: Reviewed in EMR Assessment: 1. lumbar spondylosis without myelopathy 2. SIJ dysfunction 3. chronic pain syndrome Plan: 1. Explanation: Opioid and psychological risk scores were reviewed. Diagnoses , prognoses, and multiple treatment options including but not limited to physical therapy, interventional therapies, adjuvant medical therapies, narcotic medication therapies, and surgery were discussed with the patient and all questions were answered to the patient's satisfaction. 2. Opioid agreement: no opioids prescribed today 3. Counseling: The patient was counseled extensively on SMOKING CESSATION, BODY MASS INDEX, EXERCISE. Specifically, the patient was instructed regarding the importance of smoking cessation, weight control, and exercise in the context of both chronic pain and overall health. 4. Procedures: L lumbar RFA 5. Consultations: None 6. Investigations: None 7. Medications: none prescribed 8. Disposition: f/u for PQRS measures: 1-Patient's medications are documented in the chart. 2-Tobacco use is positive 3-Patient has not had a pneumococcal vaccine. 4-Advanced care planning discussed, patient unable to give. 5-Opioid contract NOT signed with the patient. 6-Pain positive, follow-up visit or procedure scheduled 7-Patient's blood pressure measured and documented, and patient will follow up with the primary care due to hypertension. 8-Patient's weight was measured, and body mass index within the normal limits, and counseling was done. Patient instructed to follow up with PCP. 9-Patient WAS NOT identified as an unhealthy alcohol user.
== END ==
LOC: PNWHC3 12:15
PROVIDERS: ATTEND Anesthesiology
DX: M47.816 Spondylosis without myelopathy or radiculopathy, lumbar region (principal); M53.3 Sacrococcygeal disorders, not elsewhere classified
CPT/HCPCS: 99211

== ENCOUNTER 2017-06-27 09:31 | Day surgery (SDC) | payer BC ==
[2017-06-24 09:46] VITALS: BMI 22.8
[2017-06-27 09:55] VITALS: TEMP 97.7
[2017-06-27] MEDS ORDERED: LIDOCAINE 1% 20 ML VIAL (10MG/ML) FOR IV START INTRADERMA ONE (10:15)
--- NOTE | 2017-06-27 10:53 | P.PCN ---
Date of Procedure: 06/27/17 Preoperative Diagnosis: Postoperative Diagnosis: Procedure(s) Performed: PREOPERATIVE DIAGNOSIS: 1-Lumbar Spondylosis with Facet Arthropathy without myelopathy. 2- Lumber degenerative disc disease POSTOPERATIVE DIAGNOSIS: 1- Lumbar Spondylosis with Facet Arthropathy without myelopathy. 2- Lumber degenerative disc disease PROCEDURES : Left Radiofrequency thermocoagulation, L3-L4, L4-L5, and L5-S1 medial branch, with fluoroscopic guidance ANESTHESIA: IV sedation with versed 2 mg and fentaneyl 150 mcg and local infiltration with lidocaine 1% 6 ml EBL: Minimal PROCEDURE INDICATION: The patient with low back pain secondary to lumbar facet arthropathy who had more than 50% relief of her pain with previous diagnostic lumbar medial branch block with bupivacaine. PROCEDURE DESCRIPTION / TECHNIQUE: The patient was seen and identified in the preoperative area. Risks, benefits, complications, including but not limited to risk of infection ,bleeding , allergic reactions to the medications and no complete pain releife , and alternatives were discussed with the patient, the patient agreed to proceed with the procedure and signed the consent. IV was started. Vital signs remained stable throughout the procedure. Patient was taken to the OR and time out was completed. The patient was placed in the prone position on the procedure table. The lumber area was prepped and draped in the usual sterile fashion. . Vital signs were closely monitored during the procedure .IV sedation was used during the procedure to decrease patients anxiety. Using AP and then oblique fluoroscopy, the ``eye of the Uli dog corresponding to the connection between the superior and transverse articular processes of left L3, L4, and L5 were identified, marked, and localized with 1 % lidocaine. Subsequently, a 18 -pd radiofrequency cannula with a 10- mm active tip was advanced guided by fluoroscopy to each of the ``eyes of the Uli dog at left L3, L4, and L5. Each site then underwent sensory testing at 50 Hz and 0 to 1 volt and motor testing at 2.5 Hz and 0 to 3 volt with local stimulation, but no radicular symptoms down the legs. Thereafter the left L3-4, L4-5, and L5-S1 sites underwent radiofrequency thermocoagulation at 80 degrees celsius for 90 seconds after injecting 0.5 ml of PF lidocaine 1%. then After the thermocoagulation done , 1 ml of the block solution containing Kenalog 40 mg and 3 ml of marain 0.5% was injected at the left L3-4 , L4-5 , and L5-S1, levels after negative aspiration of CSF and blood and with no paresthesias. Cannulas were retracted while injecting lidocaine 1% until the needle is out. At the end of the procedure, the skin was cleansed and bandages were applied. COMPLICATIONS: No acute complications. DISPOSITION / PLANS: The patient was placed in a supine position and transferred to the recovery area in a stable condition for observation and was discharged from the recovery room after meeting discharge criteria. Home discharge instructions given to the patient by the staff. The patient was reexamined prior to discharge. The patient will schedule a follow up in the clinic in 2-4 weeks. Implants: Indications for Procedure: Operative Findings: Description of Procedure:
[2017-06-27] MEDS ORDERED: IV FLUID CONTINUATION 1,000 ML IV ONE ×2 (11:00)
--- NOTE | 2017-06-27 11:09 | FL ---
EXAMINATION TYPE: FL guided pain mgmt statistic DATE OF EXAM: 06/27/2017 COMPARISON: NONE HISTORY: Back pain TECHNIQUE: Fluoroscopy. FINDINGS/IMPRESSION: Fluoroscopic guidance was provided during procedure performed by Dr. Carrizales. A total of 5 seconds of fluoroscopic time was utilized during the procedure and 3 spot images was ac quired.
[2017-06-27 11:20] VITALS: BP 101/53; PULSE 73; RESP 16
== END 2017-06-27 11:36 | disposition home or self-care (01) ==
LOC: ORPAIN 09:31
PROVIDERS: ATTEND Specialist
DX: M47.816 Spondylosis without myelopathy or radiculopathy, lumbar region (principal); M46.96 Unspecified inflammatory spondylopathy, lumbar region; M51.36 Other intervertebral disc degeneration, lumbar region; Z88.6 Allergy status to analgesic agent; Z88.0 Allergy status to penicillin
CPT/HCPCS: 64635; 64636; 99152; 99153; J2250; J3301; J3010

== ENCOUNTER 2017-07-25 09:25 | Day surgery (SDC) | payer BC ==
[2017-07-20 14:37] VITALS: BMI 22.3
[2017-07-25 09:34] VITALS: RESP 16; TEMP 97.3
[2017-07-25] MEDS ORDERED: LIDOCAINE 1% 20 ML VIAL (10MG/ML) FOR IV START INTRADERMA ONE (09:35)
[2017-07-25] MEDS ORDERED: LACTATED RINGERS 1,000 ML IV ONE (09:35)
[2017-07-25] MEDS ORDERED: LACTATED RINGERS 1,000 ML IV SCH (10:15)
--- NOTE | 2017-07-25 10:38 | P.PCN ---
Date of Procedure: 07/25/17 Surgeon: Alfred Rendon Pathology: none sent Condition: stable Disposition: PACU Description of Procedure: PREOPERATIVE DIAGNOSIS: Lumbar spondylosis without myelopathy and facet arthropathy POSTOPERATIVE DIAGNOSIS: Lumbar spondylosis without myelopathy and facet arthropathy PROCEDURES: Right Radiofrequency thermocoagulation, L3-L4, L4-L5, and L5-S1 medial branch, with fluoroscopic guidance. ANESTHESIA: 1% lidocaine plain; Conscious sedation with versed/fentanyl EBL: Minimal PROCEDURE INDICATION: The patient with low back pain secondary to lumbar arthropathy who had more than 50% relief of pain with previous diagnostic lumbar medial branch block with bupivacaine. Patient presents for right lumbar RFA today after good relief from left side; no use of blood thinners. PROCEDURE DESCRIPTION / TECHNIQUE: The patient was seen and identified in the preoperative area. Risks, benefits, complications, and alternatives were discussed with the patient (including but not limited to incomplete pain relief , bleeding, infection, nerve damage, and allergies to medications), the patient agreed to proceed with the procedure and signed the consent after all questions were answered. Patient was taken to the OR and time out was completed to verify proper patient , position, laterality of pain, and allergies. Pt was placed in the prone position. IV was started. Vital signs remained stable throughout the procedure. A pillow was placed under the patients chest to decrease lordosis. The lumbosacral area was prepped and draped in the usual sterile fashion. Vital signs were closely monitored during the procedure. Conscious sedation was used during the procedure to decrease patients anxiety. Using AP and then oblique fluoroscopy, the eye of the Uli dog corresponding to the connection between the superior and transverse articular processes of right L4, L5 and top of the sacrum were identified, marked, and localized with 1% lidocaine. Subsequently, a 20 gauge, 100-mm radiofrequency cannula with a 10-mm active tip was advanced guided by fluoroscopy to each of the eyes of the Uli dog at right L3, L4, and L5 medial branches. Each site then underwent sensory testing at 50 Hz and 0 to 1 volt and motor testing at 2 Hz and 0 to 3 volt with local stimulation, but no radicular symptoms down the legs. Thereafter the right L3, L4, and L5 medial branch sites underwent radiofrequency thermocoagulation at 80 degrees Celsius for 90 seconds after injecting 0.5 ml of PF lidocaine 1%. After thermocoagulation, 1 ml of the block solution containing Decadron 10 mg and 2 mL of preservative-free normal saline was injected at the right L3, L4, and L5 medial branch levels after negative aspiration of CSF and blood and with no paresthesias. Cannulas were retracted while injecting lidocaine 1% until the needles were removed. At the end of the procedure, the skin was cleansed and bandages were applied. COMPLICATIONS: No acute complications. DISPOSITION / PLANS: The patient was placed in a supine position and transferred to the recovery area in a stable condition for observation and was discharged from the recovery room after meeting discharge criteria. Home discharge instructions given to the patient by the staff. The patient was reexamined prior to discharge. The patient will schedule a follow up in the clinic in 2-4 weeks as bilateral RFA completed.
[2017-07-25] MEDS ORDERED: MORPHINE SULFATE 2 MG/ML SYRINGE IVP PRN (10:40)
--- NOTE | 2017-07-25 11:06 | FL ---
EXAMINATION TYPE: FL guided pain mgmt statistic DATE OF EXAM: 07/25/2017 FLUOROSCOPY Fluoroscopy time of 7 seconds was used during lumbar spine pain intervention procedure. 3 images docu ment/s the procedure.
[2017-07-25] MEDS ORDERED: HYDROmorphone 0.5 MG/0.5 ML SYRINGE IVP STA (11:36)
[2017-07-25] MEDS ORDERED: IV FLUID CONTINUATION 650 ML IV ONE (11:48)
[2017-07-25 12:09] VITALS: BP 101/60; PULSE 70
== END 2017-07-25 12:25 | disposition home or self-care (01) ==
LOC: ORPAIN 09:25
PROVIDERS: ATTEND Anesthesiology
DX: M47.816 Spondylosis without myelopathy or radiculopathy, lumbar region (principal); M46.96 Unspecified inflammatory spondylopathy, lumbar region; Z88.6 Allergy status to analgesic agent; Z88.0 Allergy status to penicillin
CPT/HCPCS: 64635; 64636 ×2; 99152; J2250; J1100; J3010; J2270; J1170

== ENCOUNTER → 2017-09-08 | Outpatient (CLI) | payer BC ==
[2017-09-08 13:33] VITALS: BP 135/62; PULSE 96; RESP 18
--- NOTE | 2017-09-08 13:51 | P.PN ---
Progress Note - Text Progress Note Date: 09/08/17 This is a 42-year-old female with neck pain status post 2 cervical fusions the first was done in 2012 and the second one in 2014. The patient feels pain that radiates down her left arm to the left wrist and also numbness in both hands. She had an MRI on the cervical spine which did not show any new changes however the level of the fusion at C4-C5 was not seen well because of an artifact signal. Neuro exam of the upper extremities showed normal muscle strength bilaterally and symmetrically and normal symmetrical deep tendon reflexes. She has tenderness in the left side of her cervical spine and also the left trapezius muscle. At this point I will send the patient to have an EMG done on the upper extremities to rule out carpal tunnel syndrome versus cervical radiculopathy. We will see the patient for reevaluation after she gets her EMG done. PQRS measures: 1-Patient's medications are documented in the chart. 2-Tobacco use is negative 3-Patient has not had a pneumococcal vaccine. 4-Advanced care planning discussed, patient unable to give 5-Opioid contract we are not prescribing opioids to the patient. 6-Pain positive, follow-up visit or procedure scheduled 7-Patient's blood pressure measured and documented within normal limits. 8-Patient's weight was measured, and body mass index was normal. 9-Patient WAS NOT identified as an unhealthy alcohol user.
== END | disposition home or self-care (01) ==
LOC: PNWHC3 12:52
DX: M54.2 Cervicalgia (principal); Z98.1 Arthrodesis status
CPT/HCPCS: 99211

== ENCOUNTER → 2017-10-18 | Outpatient (CLI) | payer BC ==
--- NOTE | 2017-10-18 10:14 | US ---
EXAMINATION TYPE: US thyroid st tissue head/neck DATE OF EXAM: 10/18/2017 COMPARISON: MRI CLINICAL HISTORY: E04.1 Thyroid Nodule. Nodule seen on MRI GLAND SIZE: Right Lobe: 5.0 x 1.5 x 2.0 cm Overall Parenchyma: homogenous Left Lobe: 4.8 x 1.4 x 1.5 cm Overall Parenchyma: homogeneous Isthmus Thickness: 0.4 cm NODULES RIGHT: # of nodules measured on right: 0 LEFT: # of nodules measured on left: 1 1. 0.9 X 0.6 x 0.6 cm hypoechoic solid nodule at the mid pole with well-defined margins; present wi th microcalcifications. This nodule is wider than tall and shows intranodular vascularity. Prior size: 0.8 x 0.6 cm on MRI Bilateral neck scanned, no evidence of lymphadenopathy. Nodule on left as seen on MRI IMPRESSION: 1. Subcentimeter thyroid nodularity.
== END | disposition home or self-care (01) ==
LOC: RADUSWWP 09:43
PROVIDERS: ATTEND Internal Medicine Endocrinology, Diabetes & Metabolism
DX: E04.1 Nontoxic single thyroid nodule (principal)
CPT/HCPCS: 76536

== ENCOUNTER → 2017-11-23 | Outpatient (CLI) | payer BC ==
--- NOTE | 2017-11-24 17:59 | NM ---
EXAMINATION TYPE: NM thyroid image w uptake DATE OF EXAM: 11/24/2017 COMPARISON: NONE HISTORY: Hyperthyroidism TECHNIQUE: Thyroid iodine uptake is calculated and images performed after the oral administration of 300 uCi 1-123 Capsule. FINDINGS: There is normal distribution of radiotracer to the bilateral thyroid lobes. There appears t o be prominent uptake on the thyroid scan images within the thyroid. Salivary glands are not identifi ed. Uptake at 4 hours is 12.6%. Uptake at 24 hours is 28.6%. These are within normal limits. IMPRESSION: 1. Normal thyroid scan.
== END | disposition home or self-care (01) ==
LOC: RADNMMAIN 09:39
PROVIDERS: ATTEND Internal Medicine Endocrinology, Diabetes & Metabolism
DX: E04.1 Nontoxic single thyroid nodule (principal); E05.90 Thyrotoxicosis, unspecified without thyrotoxic crisis or storm
CPT/HCPCS: 78014; A9516

== ENCOUNTER → 2017-12-13 | Outpatient (CLI) | payer BC ==
[2017-12-13 12:48] LABS: T4, Free (Free Thyroxine) 0.8 ng/dL (0.78-2.19)
== END | disposition home or self-care (01) ==
LOC: LABWHC1 11:48
PROVIDERS: ATTEND Internal Medicine Endocrinology, Diabetes & Metabolism
DX: E04.1 Nontoxic single thyroid nodule (principal); E05.90 Thyrotoxicosis, unspecified without thyrotoxic crisis or storm
CPT/HCPCS: 36415; 84439; 84443; 84480

== ENCOUNTER → 2017-12-21 | Outpatient (CLI) | payer BC ==
--- NOTE | 2017-12-22 09:29 | XR ---
EXAMINATION TYPE: XR chest 2V DATE OF EXAM: 12/21/2017 COMPARISON: 08/25/2015 INDICATION: Cough congestion TECHNIQUE: Frontal and lateral views of the chest are obtained. FINDINGS: The heart size is normal. The pulmonary vasculature is normal. The lungs are clear. IMPRESSION: 1. No acute pulmonary process.
== END | disposition home or self-care (01) ==
LOC: RADXRMAIN 16:47
PROVIDERS: ATTEND Internal Medicine
DX: R05 Cough (principal)
CPT/HCPCS: 71046

== ENCOUNTER → 2018-01-03 | Outpatient (CLI) | payer BC ==
[2018-01-04 14:09] LABS: Alt. alternata IgE Class CLASS 0; Alternaria alternata IgE <0.35 kU/L (<0.35); Asperg. fumagatus IgE <0.35 kU/L (<0.35); Asperg. fumagatus IgE Class CLASS 0; Bermuda Grass IgE <0.35 kU/L (<0.35); Birch(Com.Silvr) IgE <0.35 kU/L (<0.35); Birch(Com.Silvr) IgE Class CLASS 0; Cat Epith & Dander IgE 1.57 kU/L (<0.35); Cat Epith & Dander IgE Class CLASS II; Clad herbarum IgE <0.35 kU/L (<0.35); Cockroach IgE <0.35 kU/L (<0.35); Cottonwood IgE <0.35 kU/L (<0.35); Dermato. Pteronyssinus IgE <0.35 kU/L (<0.35); Dermato. farinae IgE <0.35 kU/L (<0.35); Dermato. farinae IgE Class CLASS 0; Dog Dander IgE <0.35 kU/L (<0.35); Elm IgE <0.35 kU/L (<0.35); Maple (Box Elder) IgE <0.35 kU/L (<0.35); Maple (Box Elder) IgE Class CLASS 0; Mountain Cedar IgE <0.35 kU/L (<0.35); Mountain Cedar IgE Class CLASS 0; Mouse Urine IgE Class CLASS 0; Nettle IgE <0.35 kU/L (<0.35); Nettle IgE Class CLASS 0; Oak IgE <0.35 kU/L (<0.35); Penicillium notatum IgE Class CLASS 0; Rough Marshelder IgE <0.35 kU/L (<0.35); Rough Marshelder IgE Class CLASS 0; Timothy Grass IgE <0.35 kU/L (<0.35); White Ash IgE Class CLASS 0
== END | disposition home or self-care (01) ==
LOC: LABWHC1 11:41
PROVIDERS: ATTEND Internal Medicine Sleep Medicine
DX: B44.81 Allergic bronchopulmonary aspergillosis (principal)
CPT/HCPCS: 36415; 82785; 86001; 86003; 86606; 86609

== ENCOUNTER → 2018-05-01 | Outpatient (CLI) | payer BC ==
[2018-05-01 15:34] LABS: T4, Free (Free Thyroxine) 0.7 ng/dL (0.78-2.19)
== END | disposition home or self-care (01) ==
LOC: LABWHC1 14:38
PROVIDERS: ATTEND Internal Medicine Endocrinology, Diabetes & Metabolism
DX: E05.90 Thyrotoxicosis, unspecified without thyrotoxic crisis or storm (principal)
CPT/HCPCS: 36415; 84439; 84443; 84480

== ENCOUNTER → 2018-06-12 | Outpatient (CLI) | payer BC ==
[2018-06-12 13:10] LABS: T4, Free (Free Thyroxine) 0.86 ng/dL (0.78-2.19)
== END | disposition home or self-care (01) ==
LOC: LABWHC1 11:33
PROVIDERS: ATTEND Internal Medicine Endocrinology, Diabetes & Metabolism
DX: E05.90 Thyrotoxicosis, unspecified without thyrotoxic crisis or storm (principal)
CPT/HCPCS: 36415; 84439; 84443; 84480

== ENCOUNTER → 2018-06-13 | Outpatient (CLI) | payer BC ==
[2018-06-13 12:53] LABS: Basophils % (A) 0 %; Eosinophils # (A) 0.1 k/uL (0-0.7); Eosinophils % (A) 1 %; HGB 14.3 gm/dL (11.4-16.0); Lymphocytes # (A) 2.5 k/uL (1.0-4.8); Lymphocytes % (A) 28 %; MCH 31.7 pg (25.0-35.0); MCHC 33.4 g/dL (31.0-37.0); MCV 95.1 fL (80.0-100.0); Mean Platelet Volume 6.9; Monocytes # (A) 0.3 k/uL (0-1.0); Monocytes % (A) 3 %; Neutrophils % (A) 66 %; Platelet Count 311 k/uL (150-450); RBC 4.52 m/uL (3.80-5.40); RDW 13.6 % (11.5-15.5); WBC 9.1 k/uL (3.8-10.6)
[2018-06-13 13:03] LABS: ALT 45 U/L (9-52); AST 32 U/L (14-36); Albumin 4.4 g/dL (3.5-5.0); Alkaline Phosphatase 69 U/L (38-126); Anion Gap 8 mmol/L; Blood Urea Nitrogen 5 mg/dL (7-17); Calcium 9.7 mg/dL (8.4-10.2); Carbon Dioxide 24 mmol/L (22-30); Chloride 109 mmol/L (98-107); Glucose 80 mg/dL (74-99); Potassium 4.5 mmol/L (3.5-5.1); Sodium 141 mmol/L (137-145); Total Bilirubin 0.3 mg/dL (0.2-1.3); Total Protein 6.8 g/dL (6.3-8.2)
[2018-06-13 20:42] LABS: ACTH 6.05 pg/mL (0.00-45.99)
== END | disposition home or self-care (01) ==
LOC: LABWHC1 11:49
PROVIDERS: ATTEND Internal Medicine Endocrinology, Diabetes & Metabolism
DX: R53.83 Other fatigue (principal)
CPT/HCPCS: 36415; 80053; 82024; 82533; 84146; 85025

== ENCOUNTER → 2018-06-24 | Outpatient (CLI) | payer BC | END | disposition home or self-care (01) | LOC: LABWHC1 08:07 | PROVIDERS: ATTEND Internal Medicine Endocrinology, Diabetes & Metabolism | DX: E04.1 Nontoxic single thyroid nodule (principal); E05.90 Thyrotoxicosis, unspecified without thyrotoxic crisis or storm | CPT/HCPCS: 36415; 82024; 82533 ==

== ENCOUNTER → 2018-11-03 | Outpatient (CLI) | payer BC ==
--- NOTE | 2018-11-05 16:11 | US ---
EXAMINATION TYPE: US thyroid st tissue head/neck DATE OF EXAM: 11/03/2018 COMPARISON: 10/18/2017 CLINICAL HISTORY: 43-year-old female E04.1 SINGLE THYROID NODULE. TECHNIQUE: Multiple sonographic images of the thyroid gland are obtained. FINDINGS: GLAND SIZE: Right Lobe: 5.0 x 1.6 x 1.4 cm Overall Parenchyma: homogenous Left Lobe: 4.5 x 1.6 x 1.7 cm Overall Parenchyma: homogeneous Isthmus Thickness: 0.4 cm NODULES RIGHT: # of nodules measured on right: 0 LEFT: # of nodules measured on left: 1 1. 1.0 X 0.6 x 0.6 cm hypoechoic mixed nodule at the mid pole with well-defined margins; . This no dule is wider than tall and shows intranodular vascularity. Prior size: 0.9 x 0.6 x 0.6 cm ISTHMUS: # of nodules measured in the isthmus: 0 Bilateral neck scanned, no evidence of lymphadenopathy. Nodule as described. IMPRESSION: Solitary mixed nodule on the left measures 10 x 6 mm versus 9 x 6 mm, previously, not significant kristi nged.
== END | disposition home or self-care (01) ==
LOC: RADUSWWP 16:11
PROVIDERS: ATTEND Internal Medicine Endocrinology, Diabetes & Metabolism
DX: E04.1 Nontoxic single thyroid nodule (principal)
CPT/HCPCS: 76536

== ENCOUNTER 2019-04-12 10:49 | Emergency (ER) | payer BC ==
[2019-04-12 11:07] VITALS: TEMP 98.8
[2019-04-12] MEDS ORDERED: IPRATROPIUM-ALBUTEROL 3 ML NEB INHALATION STA ×2 (12:41→13:35)
[2019-04-12] MEDS ORDERED: methylPREDNISolone SOD SUCCI 125 MG/2 ML VIAL IM ONE (12:42)
[2019-04-12] MEDS ORDERED: ALBUTEROL NEBULIZED 2.5 MG/3 ML INHALATION STA (12:42)
--- NOTE | 2019-04-12 13:23 | XR ---
EXAMINATION TYPE: XR chest 2V DATE OF EXAM: 04/12/2019 COMPARISON: Chest x-ray December 21, 2017. HISTORY: History of asthma with cough congestion shortness of breath. TECHNIQUE: Frontal and lateral views of the chest are obtained. FINDINGS: There is no suspicious new focal air space opacity, pleural effusion, or pneumothorax seen . The cardiac silhouette size is within normal limits. Underlying scoliotic curvature is redemonstra rina. IMPRESSION: No suspicious acute pulmonary process. No significant change from prior.
--- NOTE | 2019-04-12 13:29 | ED ---
SOB HPI - General Chief Complaint: Shortness of Breath Stated Complaint: Asthma, SOB Time Seen by Provider: 04/12/19 12:15 Source: patient, RN notes reviewed, old records reviewed Mode of arrival: ambulatory Limitations: no limitations - History of Present Illness Initial Comments: 43 year old female presents with 3 days of wheezing, cough, and shortness of breath. She has history of asthma. She states she sees Dr. Ayala for pulmonology. She denies associated chest, pain, but reports restriction when taking a deep breath. She states she has had no fever, does report productive cough. She is a smoker. - Related Data Home Medications Medication Instructions Recorded Confirmed Gabapentin [Neurontin] 600 mg PO QID 02/03/15 09/08/17 Multivitamins, Thera [Multivitamin] 1 tab PO DAILY 11/23/16 09/08/17 Fexofenadine HCl [Anaya Allergy] 60 mg PO DAILY 04/07/17 09/08/17 traMADol HCl [Ultram] 50 mg PO TID 05/30/17 09/08/17 Previous Rx's Medication Instructions Recorded Azithromycin [Zithromax Z-pack] 250 mg PO DIRECTED #6 tab 04/12/19 Promethazine/Dextromethorphan 5 ml PO TID #120 ml 04/12/19 [Phenergan DM Syrup] predniSONE 10 mg PO DAILY #15 tab 04/12/19 Allergies Allergy/AdvReac Type Severity Reaction Status Date / Time NSAIDS (Non-Steroidal Allergy Dyspnea Verified 09/08/17 13:26 Anti-Inflamma Penicillins Allergy Rash/Hives Verified 09/08/17 13:26 Review of Systems ROS Statement: Those systems with pertinent positive or pertinent negative responses have been documented in the HPI. ROS Other: All systems not noted in ROS Statement are negative. Constitutional: Reports: chills Eyes: Denies: eye pain ENT: Denies: ear pain Respiratory: Reports: cough, dyspnea, wheezes. Denies: stridor Cardiovascular: Denies: chest pain, palpitations Endocrine: Denies: fatigue Gastrointestinal: Denies: abdominal pain Musculoskeletal: Denies: back pain Skin: Denies: rash Neurological: Denies: headache Past Medical History Past Medical History: Asthma, Musculoskeletal Disorder Additional Past Medical History / Comment(s): chronic back pain, migraines, degenerative and herniated discs, spinal stenosis History of Any Multi-Drug Resistant Organisms: None Reported Past Surgical History: Back Surgery, Hysterectomy, Tonsillectomy Additional Past Surgical History / Comment(s): cervical fusion and cervical decompression C 4-5 then C5-6, REMOVAL OF HARDWARE from c5-c6 Past Anesthesia/Blood Transfusion Reactions: Motion Sickness Past Psychological History: Anxiety Smoking Status: Current some day smoker Past Alcohol Use History: None Reported Past Drug Use History: None Reported - Past Family History Mother Family Medical History: No Reported History Father Family Medical History: No Reported History General Exam - General Exam Comments Initial Comments: Pleasant 43 year old female, no distress. Limitations: no limitations General appearance: alert, in no apparent distress Head exam: Present: atraumatic, normocephalic, normal inspection Eye exam: Present: normal appearance, PERRL, EOMI. Absent: scleral icterus, conjunctival injection, periorbital swelling ENT exam: Present: normal exam, mucous membranes moist Neck exam: Present: normal inspection. Absent: tenderness, meningismus, lymphadenopathy Respiratory exam: Present: normal lung sounds bilaterally, wheezes. Absent: respiratory distress, rales, rhonchi, stridor Cardiovascular Exam: Present: regular rate, normal rhythm, normal heart sounds. Absent: systolic murmur, diastolic murmur, rubs, gallop, clicks Neurological exam: Present: alert, oriented X3, CN II-XII intact Psychiatric exam: Present: normal affect, normal mood Skin exam: Present: warm, dry, intact, normal color. Absent: rash Course Vital Signs 04/12/19 04/12/19 04/12/19 11:04 12:20 12:49 Temperature 98.8 F Pulse Rate 90 97 94 Respiratory 18 22 Rate Blood Pressure 110/56 O2 Sat by Pulse 96 95 Oximetry 04/12/19 04/12/19 04/12/19 12:56 13:52 14:01 Temperature Pulse Rate 96 95 97 Respiratory Rate Blood Pressure O2 Sat by Pulse Oximetry 04/12/19 14:06 Temperature Pulse Rate 109 H Respiratory 18 Rate Blood Pressure 103/45 O2 Sat by Pulse 95 Oximetry Medical Decision Making - Medical Decision Making Patient is a 43 year old female with cough, wheezing, and history of smoking and asthma. She has wheezing noted, given 2 douneb treatments. Vitals signs stable. CXR shows COPD changes, no signiificant infiltrate. She reports that she has had productive yellow phlegm. She is given IM rocephin, solumendrol, and will be treated outpatiently for asthma/COPD exacerbation. Discussed close follow up with PCP and pulmonology. - Radiology Data Radiology results: report reviewed CXR shows no suspicious acute pulmonary process. No change from prior. Disposition Clinical Impression: Asthma exacerbation Disposition: HOME SELF-CARE Condition: Good Instructions (If sedation given, give patient instructions): Asthma (ED) Additional Instructions: Follow-up with primary care physician within the next 1-2 days. Return to emergency department if any alarming signs or symptoms occur. Prescriptions: Promethazine/Dextromethorphan [Phenergan DM Syrup] 5 ml PO TID #120 ml predniSONE 10 mg PO DAILY #15 tab Azithromycin [Zithromax Z-pack] 250 mg PO DIRECTED #6 tab Is patient prescribed a controlled substance at d/c from ED?: No Referrals: Mylene Rodriguez MD [Primary Care Provider] - 1-2 days Time of Disposition: 13:28
[2019-04-12] MEDS ORDERED: cefTRIAXone 1,000 MG VIAL (IM USE) IM STA (13:34)
[2019-04-12 14:07] VITALS: BP 103/45; PULSE 109; RESP 18
== END 2019-04-12 14:16 | disposition home or self-care (01) ==
LOC: EC 10:49
DX: J45.901 Unspecified asthma with (acute) exacerbation (principal); J44.9 Chronic obstructive pulmonary disease, unspecified; G89.29 Other chronic pain; F41.9 Anxiety disorder, unspecified; F17.200 Nicotine dependence, unspecified, uncomplicated; Z88.0 Allergy status to penicillin; Z88.6 Allergy status to analgesic agent; Z79.891 Long term (current) use of opiate analgesic; Z79.899 Other long term (current) drug therapy; Z86.69 Personal history of other diseases of the nervous system and sense organs
CPT/HCPCS: 94640 ×2; 71046; 99285; 96372 ×2; J2930; J0696

== ENCOUNTER → 2019-05-23 | Outpatient (CLI) | payer BC ==
--- NOTE | 2019-05-24 10:26 | MM ---
Reason for exam: screening (asymptomatic). Last mammogram was performed 2 years and 6 months ago. History: Patient history of endometrial cancer. Took hormonal contraceptives for 3 years. Physical Findings: A clinical breast exam by your physician is recommended on an annual basis and results should be correlated with mammographic findings. MG Screening Mammo w CAD Bilateral CC and MLO view(s) were taken. Prior study comparison: November 09, 2016, bilateral MG screening mammo w CAD. August 13, 2014, bilateral MG screening mammo w CAD. The breast tissue is heterogeneously dense. This may lower the sensitivity of mammography. No suspicious abnormality. No significant changes when compared with prior studies. ASSESSMENT: Negative, BI-RAD 1 RECOMMENDATION: Routine screening mammogram of both breasts in 1 year.
== END | disposition home or self-care (01) ==
LOC: RADMAMWWP 13:56
PROVIDERS: ATTEND Internal Medicine
DX: Z12.31 Encounter for screening mammogram for malignant neoplasm of breast (principal)
CPT/HCPCS: 77067

== ENCOUNTER → 2019-08-15 | Outpatient (CLI) | payer BC ==
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
== END | disposition home or self-care (01) ==
LOC: RADMRIMAIN 13:47
PROVIDERS: ATTEND Internal Medicine
DX: M54.12 Radiculopathy, cervical region (principal); Z98.1 Arthrodesis status
CPT/HCPCS: 72156; A9585

== ENCOUNTER 2019-09-26 21:43 | Emergency (ER) | payer BC ==
[2019-09-26 21:48] VITALS: BP 116/73; PULSE 111; RESP 20; TEMP 98.7
[2019-09-26] MEDS ORDERED: ACETAMINOPHEN TAB 500 MG TAB PO STA (22:05)
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
--- NOTE | 2019-09-26 22:25 | XR ---
EXAMINATION TYPE: XR lumbar spine 2 or 3V DATE OF EXAM: 09/26/2019 COMPARISON: 07/12/2013 HISTORY: Back pain TECHNIQUE: 3 views FINDINGS: Lumbar vertebra have normal spacing and alignment. Posterior elements are intact. Sacroilia c joints appear normal. IMPRESSION: Negative lumbar spine exam. No fracture seen.
[2019-09-26] MEDS ORDERED: CYCLOBENZAPRINE 10 MG TAB PO STA (22:36)
== END 2019-09-26 22:46 | disposition home or self-care (01) ==
LOC: EC 21:43
DX: S16.1XXA Strain of muscle, fascia and tendon at neck level, initial encounter (principal); M47.22 Other spondylosis with radiculopathy, cervical region; M54.5 Low back pain; R51 Headache; J45.909 Unspecified asthma, uncomplicated; G89.29 Other chronic pain; F41.9 Anxiety disorder, unspecified; F17.200 Nicotine dependence, unspecified, uncomplicated; Z88.0 Allergy status to penicillin; Z88.6 Allergy status to analgesic agent; Z79.891 Long term (current) use of opiate analgesic; Z79.899 Other long term (current) drug therapy; Z86.69 Personal history of other diseases of the nervous system and sense organs; Z98.1 Arthrodesis status; Y04.0XXA Assault by unarmed brawl or fight, initial encounter; Y93.89 Activity, other specified; Y92.009 Unspecified place in unspecified non-institutional (private) residence as the place of occurrence of the external cause
CPT/HCPCS: 70450; 72100; 72125; 99284

== ENCOUNTER 2019-12-01 22:38 | Emergency (ER) | payer OTHER ==
[2019-12-01 22:50] VITALS: BP 106/56; PULSE 55; RESP 16; TEMP 98.3
--- NOTE | 2019-12-01 22:52 | ED ---
ENT HPI - General Chief complaint: Dental/Oral Stated complaint: Dental Pain Time Seen by Provider: 12/01/19 22:51 Source: patient Mode of arrival: ambulatory Limitations: no limitations - History of Present Illness Initial comments: 44yo female presenting today for cc of right lower dental pain. Patient states that she just had all teeth pulled from the left upper and right lower jaw. Patient states that she was told she had a dense lower jaw and a difficulty extraction. Patient states sutures are in place. Denies increase in pain admits to persistence. Patient states swelling has gone down. Denies fever, swelling below tongue or of the neck. Patient denies any other complaints. Patient appears well on arrival no signs of distress. - Related Data Home Medications Medication Instructions Recorded Confirmed Gabapentin [Neurontin] 600 mg PO QID 02/03/15 09/08/17 Multivitamins, Thera [Multivitamin] 1 tab PO DAILY 11/23/16 09/08/17 Fexofenadine HCl [Anaya Allergy] 60 mg PO DAILY 04/07/17 09/08/17 traMADol HCl [Ultram] 50 mg PO TID 05/30/17 09/08/17 Previous Rx's Medication Instructions Recorded Azithromycin [Zithromax Z-pack] 250 mg PO DIRECTED #6 tab 04/12/19 Promethazine/Dextromethorphan 5 ml PO TID #120 ml 04/12/19 [Phenergan DM Syrup] predniSONE 10 mg PO DAILY #15 tab 04/12/19 Clindamycin [Cleocin] 450 mg PO Q8H 7 Days #63 capsule 12/01/19 Allergies Allergy/AdvReac Type Severity Reaction Status Date / Time NSAIDS (Non-Steroidal Allergy Dyspnea Verified 12/01/19 22:50 Anti-Inflamma Penicillins Allergy Rash/Hives Verified 12/01/19 22:50 Review of Systems ROS Statement: Those systems with pertinent positive or pertinent negative responses have been documented in the HPI. ROS Other: All systems not noted in ROS Statement are negative. Past Medical History Past Medical History: Asthma, Musculoskeletal Disorder Additional Past Medical History / Comment(s): chronic back pain, migraines, degenerative and herniated discs, spinal stenosis History of Any Multi-Drug Resistant Organisms: None Reported Past Surgical History: Back Surgery, Hysterectomy, Tonsillectomy Additional Past Surgical History / Comment(s): cervical fusion and cervical decompression C 4-5 then C5-6, REMOVAL OF HARDWARE from c5-c6 Past Anesthesia/Blood Transfusion Reactions: Motion Sickness Past Psychological History: Anxiety Smoking Status: Current every day smoker Past Alcohol Use History: None Reported Past Drug Use History: None Reported - Past Family History Mother Family Medical History: No Reported History Father Family Medical History: No Reported History General Exam - General Exam Comments Initial Comments: General: The patient is awake and alert, in no distress Eye: Pupils are equal, round and reactive to light, extra-ocular movements are intact. No nystagmus. There is normal conjunctiva bilaterally. No signs of icterus. Ears, nose, mouth and throat: There are moist mucous membranes and no oral lesions. Sutures in place of the right lower, clots appear in place. Sutures in place of the left upper jaw. No swellng below the tongue or below angle of the mandible. Neck: The neck is supple, there is no tenderness or JVD. Cardiovascular: There is a regular rate and rhythm. No murmur, rub or gallop is appreciated. Respiratory: Lungs are clear to auscultation, respirations are non-labored, breath sounds are equal. No wheezes, stridor, rales, or rhonchi. Musculoskeletal: Normal ROM, no tenderness. Strength 5/5. Sensation intact. Radial pulses equal bilaterally 2+. Neurological: A&O x 3. CN II-XII intact grossly, There are no obvious motor or sensory deficits. Coordination appears grossly intact. Speech is normal. Skin: Skin is warm and dry and no rashes or lesions are noted. Psychiatric: Cooperative, appropriate mood & affect, normal judgment. Limitations: no limitations Course Vital Signs 12/01/19 22:48 Temperature 98.3 F Pulse Rate 55 L Respiratory 16 Rate Blood Pressure 106/56 O2 Sat by Pulse 97 Oximetry Medical Decision Making - Medical Decision Making 44-year-old female presenting for dental pain status post extraction Tuesday. No evidence of dry socket and physical examination. Patient has no signs of Dominik's angina she states the swelling has been going down. Patient states that she does not feel the pain to be this persistent was told she had a dense lower jaw and a difficulty extraction of the right lower teeth. Patient is having extractions for partial placement secondary to decay. Patient has no other complaints. Will be started on abx and givne pain management. Case discussed with Dr. samayoa Disposition Clinical Impression: Pain, dental, Post-op pain Disposition: HOME SELF-CARE Condition: Good Instructions (If sedation given, give patient instructions): Toothache (ED) Additional Instructions: Please use medication as discussed. Please call your oral surgeon first thing Tuesday to discuss pain,and ER visit-please schedule appointment for follow-up in next 2-3 days. Please return to emergency room if the symptoms increase or worsen or for any other concerns. Prescriptions: Clindamycin [Cleocin] 450 mg PO Q8H 7 Days #63 capsule Is patient prescribed a controlled substance at d/c from ED?: No Referrals: Mylene Rodriguez MD [Primary Care Provider] - 1-2 days Time of Disposition: 23:11
[2019-12-01] MEDS ORDERED: ACET/COD 300 MG/30 MG STARTER PACK 6 TAB BTL PO STA (23:09)
[2019-12-01] MEDS ORDERED: HYDROcodone/APAP 5-325MG 1 EACH TAB PO STA (23:09)
[2019-12-01] MEDS ORDERED: CLINDAMYCIN 150 MG CAP PO STA (23:10)
== END 2019-12-01 23:24 | disposition home or self-care (01) ==
LOC: EC 22:38
DX: G89.18 Other acute postprocedural pain (principal); K08.89 Other specified disorders of teeth and supporting structures; G89.29 Other chronic pain; F17.200 Nicotine dependence, unspecified, uncomplicated; Z79.891 Long term (current) use of opiate analgesic; Z79.899 Other long term (current) drug therapy; Z88.0 Allergy status to penicillin; Z88.6 Allergy status to analgesic agent; Z86.69 Personal history of other diseases of the nervous system and sense organs; Z98.818 Other dental procedure status
CPT/HCPCS: 99282

== ENCOUNTER → 2019-12-27 | Outpatient (CLI) | payer OTHER ==
--- NOTE | 2019-12-27 11:27 | MR ---
EXAMINATION TYPE: MR cervical spine wo/w con DATE OF EXAM: 12/27/2019 COMPARISON: Prior MR cervical spine 08/15/2019 HISTORY: Neck pain, BUE radic, worse on left, hx surgery x 2 2014 TECHNIQUE: Multiplanar, multisequence images of the cervical spine were acquired utilizing 5.5 mL intravenous Ga davist gadolinium contrast. C2-C3: No evidence for degenerative disc disease. No disc bulge/herniation or protrusion. No Canal stenosis. Foramina are patent bilaterally. C3-C4: No evidence for degenerative disc disease. No disc bulge/herniation or protrusion. No Canal stenosis. Foramina are patent bilaterally. C4-C5: Artifact is present. No evident foraminal encroachment. Disc space is reduced. C5-C6: Disc space is reduced. No evident disc herniation or foraminal encroachment. C6-C7: Disc height is reduced, mild posterior extension of endplate disc complex contacts anterior to the sac. C7-T1: No evidence for degenerative disc disease. No disc bulge/herniation or protrusion. No Canal stenosis. Foramina are patent bilaterally. Cervical segments are intact. There is normal alignment. Cervical spinal cord is of normal signal. Craniovertebral junction relationships are within normal limits. Patient is status post anterior ce rvical fusion and discectomy at C4-5, susceptibility artifact is again noted due to patient hardware. No evident spinal stenosis. No abnormal enhancement following contrast administration. Question thor acic scoliosis. IMPRESSION: Postop changes are stable. Degenerative disc disease. No evident spinal stenosis or foraminal encroac hment.
== END | disposition home or self-care (01) ==
LOC: RADMRIMAIN 09:41
PROVIDERS: ATTEND Internal Medicine
DX: M50.30 Other cervical disc degeneration, unspecified cervical region (principal); Z98.1 Arthrodesis status
CPT/HCPCS: 72156; A9585

== ENCOUNTER → 2020-05-02 | Outpatient (CLI) | payer OTHER ==
--- NOTE | 2020-05-02 09:59 | MR ---
EXAMINATION TYPE: MR lumbar spine wo con DATE OF EXAM: 05/02/2020 COMPARISON: CT scan 02/22/2017 HISTORY: Lower back pain left sided, Down into Left Leg and Left Foot. Leg goes Numb at times. Chroni c. TECHNIQUE: T1 and T2 axial and sagittal images of the lumbar spine are submitted. FINDINGS: There is no abnormal signal seen within the visualized spinal cord or paraspinal soft tissu es. At L1-2 there is no evidence of degenerative disc disease, disc herniation or canal stenosis. No fora neil encroachment At L2-3 there is no evidence of degenerative disc disease, disc herniation, or canal stenosis. No for aminal encroachment At L3-4 there is no evidence of degenerative disc disease, disc herniation or canal stenosis. No fora neil encroachment At L4-5 there is mild circumferential disc bulging. No canal stenosis or focal herniation. Neural for kyung patent. Mild disc desiccation. At L5-S1 there is mild facet arthropathy. No disc herniation or canal stenosis. Foramina are widely p atent IMPRESSION: 1. Mild disc desiccation L4-5 with mild circumferential disc bulging L4-L5 but no focal herniation, c anal stenosis, or foraminal encroachment.
== END | disposition home or self-care (01) ==
LOC: RADMRIMAIN 08:49
PROVIDERS: ATTEND Internal Medicine
DX: M51.26 Other intervertebral disc displacement, lumbar region (principal)
CPT/HCPCS: 72148

== ENCOUNTER → 2020-09-23 | Outpatient (CLI) | payer OTHER ==
--- NOTE | 2020-09-24 09:29 | MM ---
Reason for exam: screening (asymptomatic). Last mammogram was performed 1 year and 4 months ago. History: Patient has history of endometrial cancer at age 31. Took hormonal contraceptives for 3 years. Physical Findings: A clinical breast exam by your physician is recommended on an annual basis and results should be correlated with mammographic findings. MG Screening Mammo w CAD Bilateral CC and MLO view(s) were taken. Prior study comparison: May 23, 2019, bilateral MG screening mammo w CAD. November 09, 2016, bilateral MG screening mammo w CAD. The breast tissue is heterogeneously dense. This may lower the sensitivity of mammography. There is no discrete abnormality. No significant changes when compared with prior studies. ASSESSMENT: Negative, BI-RAD 1 RECOMMENDATION: Routine screening mammogram of both breasts in 1 year.
== END | disposition home or self-care (01) ==
LOC: RADMAMWWP 10:50
PROVIDERS: ATTEND Internal Medicine
DX: Z12.31 Encounter for screening mammogram for malignant neoplasm of breast (principal)
CPT/HCPCS: 77067

== ENCOUNTER 2020-12-26 22:34 | Emergency (ER) | payer OTHER ==
[2020-12-26 22:45] VITALS: BP 134/82; PULSE 82; RESP 18; TEMP 98.4
[2020-12-26] MEDS ORDERED: DEXAMETHASONE SOD PHOSPHATE 10 MG/ML 1 ML VIAL IM STA (23:02)
--- NOTE | 2020-12-26 23:27 | ED ---
Back Pain HPI - General Chief Complaint: Back Pain/Injury Stated Complaint: Neck/Back Pain Time Seen by Provider: 12/26/20 22:34 Source: patient, RN notes reviewed, old records reviewed Limitations: no limitations - History of Present Illness Initial Comments: This is a 45-year-old female DF for evaluation patient is presented today for evaluation regards to severe acute on chronic back pain history of back surgery. Patient has had this new pain for a few weeks to months now. Patient care muscle relaxants haven't helped. Patient denies any significant neurological complaint no loss of bowel or bladder. Patient is again refusing any opiate pain medication and ALLERGIC to anti-inflammatories Complaint: back pain, fall -: month(s) Similar Symptoms Previously: Yes Place: home Radiation: none Severity: moderate Severity scale (1-10): 7 Quality: aching Consistency: constant Improves With: none Worsens With: movement, walking Context: fall Associated Symptoms: denies other symptoms - Related Data Home Medications Medication Instructions Recorded Confirmed Gabapentin [Neurontin] 600 mg PO QID 02/03/15 09/08/17 Multivitamins, Thera [Multivitamin] 1 tab PO DAILY 11/23/16 09/08/17 Fexofenadine HCl [Anaya Allergy] 60 mg PO DAILY 04/07/17 09/08/17 traMADol HCl [Ultram] 50 mg PO TID 05/30/17 09/08/17 Previous Rx's Medication Instructions Recorded Azithromycin [Zithromax Z-pack (6 250 mg PO DIRECTED #6 tab 04/12/19 tabs)] Promethazine/Dextromethorphan 5 ml PO TID #120 ml 04/12/19 [Phenergan DM Syrup] predniSONE 10 mg PO DAILY #15 tab 04/12/19 Clindamycin [Cleocin] 450 mg PO Q8H 7 Days #63 capsule 12/01/19 predniSONE 50 mg PO DAILY #5 tab 12/27/20 Allergies Allergy/AdvReac Type Severity Reaction Status Date / Time NSAIDS (Non-Steroidal Allergy Dyspnea Verified 12/26/20 22:46 Anti-Inflamma Penicillins Allergy Rash/Hives Verified 12/26/20 22:46 Review of Systems ROS Statement: Those systems with pertinent positive or pertinent negative responses have been documented in the HPI. ROS Other: All systems not noted in ROS Statement are negative. Past Medical History Past Medical History: Asthma, Musculoskeletal Disorder Additional Past Medical History / Comment(s): chronic back pain, migraines, degenerative and herniated discs, spinal stenosis History of Any Multi-Drug Resistant Organisms: None Reported Past Surgical History: Back Surgery, Hysterectomy, Tonsillectomy Additional Past Surgical History / Comment(s): cervical fusion and cervical decompression C 4-5 then C5-6, REMOVAL OF HARDWARE from c5-c6 Past Anesthesia/Blood Transfusion Reactions: Motion Sickness Past Psychological History: Anxiety Smoking Status: Current every day smoker Past Alcohol Use History: None Reported Past Drug Use History: None Reported - Past Family History Mother Family Medical History: No Reported History Father Family Medical History: No Reported History General Exam Limitations: no limitations General appearance: alert, in no apparent distress Head exam: Present: atraumatic, normocephalic, normal inspection Eye exam: Present: normal appearance, PERRL, EOMI. Absent: scleral icterus, conjunctival injection, periorbital swelling ENT exam: Present: normal exam, mucous membranes moist Neck exam: Present: normal inspection. Absent: tenderness, meningismus, lymphadenopathy Respiratory exam: Present: normal lung sounds bilaterally. Absent: respiratory distress, wheezes, rales, rhonchi, stridor Cardiovascular Exam: Present: regular rate, normal rhythm, normal heart sounds. Absent: systolic murmur, diastolic murmur, rubs, gallop, clicks GI/Abdominal exam: Present: soft, normal bowel sounds. Absent: distended, tenderness, guarding, rebound, rigid Extremities exam: Present: normal inspection, full ROM, normal capillary refill. Absent: tenderness, pedal edema, joint swelling, calf tenderness Back exam: Present: normal inspection Neurological exam: Present: alert, oriented X3, CN II-XII intact Psychiatric exam: Present: normal affect, normal mood Skin exam: Present: warm, dry, intact, normal color. Absent: rash Course Vital Signs 12/26/20 22:44 Temperature 98.4 F Pulse Rate 82 Respiratory 18 Rate Blood Pressure 134/82 O2 Sat by Pulse 99 Oximetry - Reevaluation(s) Reevaluation #1: Medical record is reviewed Patient has improved symptoms here in the emergency department Patient spoken with, questions answered Patient feels good and agrees with Discharge home Medical Decision Making - Medical Decision Making 45 female [place] with acute on chronic back pain. Patient has normal imaging of her back. She refuses pain medication or narcotics. Patient given steroids and discharged home - Radiology Data Radiology results: report reviewed (CT of spine cervical thoracic or lumbar spine is negative for acute disease), image reviewed Disposition Clinical Impression: Cervical radiculopathy, Thoracic back pain, Mid back pain, Lumbar radiculopathy Disposition: HOME SELF-CARE Condition: Good Instructions (If sedation given, give patient instructions): Acute Low Back P ain (ED), Lumbar Radiculopathy (ED), Back Pain (ED) Prescriptions: predniSONE 50 mg PO DAILY #5 tab Is patient prescribed a controlled substance at d/c from ED?: No Referrals: Mylene Rodriguez MD [Primary Care Provider] - 1-2 days
--- NOTE | 2020-12-26 23:47 | CT ---
EXAMINATION TYPE: CT CervThoracic spine wo con DATE OF EXAM: 12/26/2020 COMPARISON: CT cervical spine 02/06/2015 HISTORY: Back Pain Neck pain CT DLP: 765.6 mGycm Automated exposure control for dose reduction was used. Images were obtained from the level of the skull base to the L1 vertebra without contrast. Cervical vertebra have normal alignment. There is anterior fusion surgery at C4-5 with a plate and sc rews. There is C5-6 moderate disc space narrowing and spur formation. Facet joints are intact. There is no cervical paraspinal mass. The skull base is intact. The thoracic vertebra have normal spacing and alignment. There is no compression fracture. There is n o thoracic paraspinal mass. There is some pleural thickening and pulmonary scarring at the lung apice s. IMPRESSION: Previous surgery in the cervical spine. Mild spondylosis at C5-6. No fracture seen of the thoracic an d cervical spine. Pulmonary fibrotic changes. There is revision of the spinal fusion surgery compared to old exam. The hardware is at C5-6 on old e xam and now is at C4-5.
--- NOTE | 2020-12-26 23:50 | CT ---
EXAMINATION TYPE: CT lumbar spine wo con DATE OF EXAM: 12/26/2020 COMPARISON: 02/22/2017 HISTORY: Back Pain CT DLP: 596.9 mGycm Automated exposure control for dose reduction was used. Images obtained from the level of T12-S1 vertebra without contrast. The lumbar vertebra have normal spacing and alignment. Posterior elements are intact. Facet joints ap pear normal. There is no sign of spinal stenosis. There is no lumbar paraspinal mass. Sacroiliac join ts are intact. IMPRESSION: Negative CT scan of the lumbar spine. No change.
== END 2020-12-27 00:33 | disposition home or self-care (01) ==
LOC: EC 22:34
DX: M54.12 Radiculopathy, cervical region (principal); M54.16 Radiculopathy, lumbar region; M54.6 Pain in thoracic spine; G89.29 Other chronic pain; F41.9 Anxiety disorder, unspecified; G43.909 Migraine, unspecified, not intractable, without status migrainosus; F17.200 Nicotine dependence, unspecified, uncomplicated; Z79.899 Other long term (current) drug therapy; Z88.6 Allergy status to analgesic agent; Z88.0 Allergy status to penicillin; Z98.1 Arthrodesis status
CPT/HCPCS: 72128; 72125; 72131; 99284; 96372; J1100

== ENCOUNTER → 2021-02-20 | Outpatient (CLI) | payer OTHER ==
--- NOTE | 2021-02-20 19:34 | MR ---
EXAMINATION TYPE: MR cervical spine wo con DATE OF EXAM: 02/20/2021 COMPARISON: CT 12/26/2020, prior MR cervical spine 12/27/2019, 08/29/2017 HISTORY: Pain in back of neck that goes into left arm causing numbness and tingling, for several year s. Two neck surgeries. TECHNIQUE: Multiplanar, multisequence images of the cervical spine were acquired. C2-C3: No evidence for degenerative disc disease. No disc bulge/herniation or protrusion. No Canal stenosis. Foramina are patent bilaterally. C3-C4: No evidence for degenerative disc disease. No disc bulge/herniation or protrusion. No Canal stenosis. Foramina are patent bilaterally. C4-C5: Disc spaces not seen. No disc bulge/herniation or protrusion. No Canal stenosis. Foramina ar e patent bilaterally. C5-C6: No evidence for degenerative disc disease. No disc bulge/herniation or protrusion. No Canal stenosis. Foramina are patent bilaterally. C6-C7: There is left-sided foraminal encroachment due to uncovertebral joint hypertrophy, lateral ext ension endplate disc complex, posterior extension endplate disc complex causes mild anterior mass eff ect on the thecal sac. C7-T1: No evidence for degenerative disc disease. No disc bulge/herniation or protrusion. No Canal stenosis. Foramina are patent bilaterally. Cervical segments are intact. There is stable alignment. Cervical spinal cord is of normal signal. Craniovertebral junction relationships are within normal limits. Patient is status post anterior ce rvical fusion and discectomy at C4-5, there is susceptibility artifact due to patient's hardware. The re is no significant spinal stenosis. Endplate discogenic marrow signal changes are again noted at C5 -6 and C6-7 with associated spondylosis. IMPRESSION: Degenerative disc disease, postop changes are similar to prior exams. Left-sided foraminal encroachme nt may progressed in the interval at C6-7.
== END | disposition home or self-care (01) ==
LOC: RADMRIMAIN 14:52
PROVIDERS: ATTEND Internal Medicine
DX: M50.30 Other cervical disc degeneration, unspecified cervical region (principal); M99.71 Connective tissue and disc stenosis of intervertebral foramina of cervical region
CPT/HCPCS: 72141

== ENCOUNTER → 2021-03-18 | Outpatient (CLI) | payer OTHER ==
--- NOTE | 2021-03-18 10:29 | P.CONS ---
History of Present Illness - Reason for Consult Consult date: 03/18/21 - Chief Complaint Neck and left shoulder pain - History of Present Illness This is a 45-year-old lady with history of chronic neck pain with radiation to the left shoulder and upper arm. The patient feels sharp pain in the left hand also but she denies any paresthesia. She does feel some weakness in the left arm. The patient denies any bowel or bladder dysfunction. This pain occasionally wakes her up at night. She had 2 cervical spinal fusions using the anterior approach. She failed to respond to physical therapy previously. She uses Pelham 10 mg 3-4 times a day for her pain. She denies any history of diabetes or treatment of anticoagulants. The patient is on disability. 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 Review of Systems Constitutional: Denies chills, Denies fever Cardiovascular: Denies chest pain, Denies shortness of breath Respiratory: Denies cough Neurological: Reports as per HPI Past Medical History Past Medical History: Asthma, Musculoskeletal Disorder, Thyroid Disorder Additional Past Medical History / Comment(s): chronic back pain, migraines, degenerative and herniated discs, spinal stenosis History of Any Multi-Drug Resistant Organisms: None Reported Past Surgical History: Back Surgery, Hysterectomy, Tonsillectomy Additional Past Surgical History / Comment(s): cervical fusion and cervical decompression C 4-5 then C5-6, REMOVAL OF HARDWARE from c5-c6 Past Anesthesia/Blood Transfusion Reactions: Motion Sickness Past Psychological History: Anxiety Smoking Status: Current every day smoker Past Alcohol Use History: None Reported Additional Past Alcohol Use History / Comment(s): smoker past 3 years, 1/2 ppd Past Drug Use History: None Reported - Past Family History Mother Family Medical History: No Reported History Father Family Medical History: No Reported History Medications and Allergies Home Medications Medication Instructions Recorded Confirmed Type Gabapentin [Neurontin] 800 mg PO TID 02/03/15 03/16/21 History Multivitamins, Thera [Multivitamin] 1 tab PO DAILY 11/23/16 03/16/21 History Fexofenadine HCl [Anaya Allergy] 60 mg PO DAILY 04/07/17 03/16/21 History Albuterol Inhaler [Ventolin Hfa 2 puff INHALATION RT-QID PRN 03/16/21 03/16/21 History Inhaler] Fluticasone/Salmeterol [Advair 1 inhalation PO BID 03/16/21 03/16/21 History 250-50 Diskus] HYDROcodone/APAP 10-325MG [Pelham 1 tab PO Q6HR PRN 03/16/21 03/16/21 History 10-325] Melatonin 10 mg PO HS PRN 03/16/21 03/16/21 History Methimazole [Tapazole] 2.5 mg PO DAILY 03/16/21 03/16/21 History Montelukast [Singulair] 10 mg PO HS 03/16/21 03/16/21 History Allergies Allergy/AdvReac Type Severity Reaction Status Date / Time ketorolac [From Toradol] Allergy Dyspnea Verified 03/16/21 11:47 NSAIDS (Non-Steroidal Allergy Dyspnea Verified 03/16/21 11:47 Anti-Inflamma Penicillins Allergy Rash/Hives Verified 03/16/21 11:47 Physical Exam Vitals: Vital Signs Temp Pulse Resp BP Pulse Ox 03/18/21 10:17 98.2 F 88 18 98/65 98 - Constitutional General appearance: average body habitus - EENT Eyes: PERRLA - Integumentary Integumentary: no calor, no cellulitis, no cyanotic, no decreased turgor, no flushed, no jaundiced, no normal, no normal turgor, no pale, no rash, no ulcer - Neurologic Motor exam of the upper extremities showed normal and symmetrical biceps reflex bilaterally, absent acid reflex bilaterally. Normal muscle strength in the upper extremities bilaterally. Significant tenderness in the cervical paravertebral musculature on the left side. Slightly decreased range of motion of the cervical spine especially to left rotation. Neurologic: CNII-XII intact - Psychiatric Psychiatric: A&O x's 3, appropriate affect, intact judgment & insight Results Results: Cervical spine MRI was done in January 2021 and showed the degenerative disc disease and postoperative changes foraminal encroachment at the C6-C7 level. Assessment and Plan Plan: This is a 45-year-old lady with neck pain with radiation to the left shoulder status post 2 cervical fusions. The patient has cervical spondylosis without myelopathy and left cervical radiculopathy. She failed to respond to physical therapy. The patient uses Pelham for her pain currently. She might benefit from getting cervical epidural steroid injection at the C7-T1 level in the left paramedian approach under fluoroscopic guidance. I thank you for the referral
== END ==
CPT/HCPCS: 99211

== ENCOUNTER 2021-04-02 07:25 | Day surgery (SDC) | payer OTHER ==
[2021-04-01 08:51] VITALS: BMI 21.9
[2021-04-02 07:51] VITALS: RESP 18; TEMP 97.8
[2021-04-02] MEDS ORDERED: LACTATED RINGERS 1,000 ML IV ONE (07:51)
[2021-04-02] MEDS ORDERED: IOPAMIDOL M200 10 ML VIAL ONE (08:18)
[2021-04-02] MEDS ORDERED: DEXAMETHASONE SOD PHOSPHATE 10 MG/ML 1 ML VIAL ONE (08:18)
[2021-04-02] MEDS ORDERED: MIDAZOLAM 2 MG/2 ML VIAL ONE (08:18)
--- NOTE | 2021-04-02 08:29 | P.PCN ---
Date of Procedure: 04/02/21 Procedure(s) Performed: . PROCEDURE 1. Cervical epidural steroid injection under fluoroscopic guidance, C7-T1 (LEFT Paramedial )(fluoroscopy images available in the radiology department ) 2. Cervical epidurogram. PREOPERATIVE DIAGNOSIS: 1- Cervical Degenerative Disc Diseases 2- Cervical radiculopathy., 3-cervical spondylosis with cervical Facet arthropathy without myelopathy POSTOPERATIVE DIAGNOSIS: : 1- Cervical Degenerative Disc Diseases , 2- Cervical radiculopathy. 3-,cervical spondylosis with cervical Facet arthropathy without myelopathy ANESTHESIA: Local anesthesia with lidocaine 1 % , and moderate sedation, with Versed 2 mg . EBL 0 PROCEDURE INDICATION: The patient with neck pain and radiculitis unresponsive to conservative treatment consents for procedure. PROCEDURE DESCRIPTION / TECHNIQUE: The patient was seen and identified in the preoperative area. Risks, benefits, complications, including but not limited to infections ,bleeding , allergic reactions to the medications ,and not complete pain releife, and alternatives were discussed with the patient, the patient agreed to proceed with the procedure and signed the consent. Patient was taken to the OR and time out was completed. The patient was placed in the prone position on the procedure table. A pillow wa s placed under the patients chest to increase the cervical interlaminar space. The cervical area was prepped and draped in the usual sterile fashion. Vital signs were closely monitored during the procedure. Conscious sedation was used during the procedure to decrease patients anxiety. Using anterior-posterior fluoroscopy, the C7-T1 interlaminar space was identified and the skin over this site was marked and then infiltrated with 1% lidocaine subcutaneously. Subsequently, a 20-gauge 3-1/2-inch Tuohy epidural needle was inserted (toward left side ) and advanced toward the epidural space by means of the ``hanging-drop technique and guided by AP and lateral fluoroscopy. The correct needle position in the epidural space was verified with the injection of 2 mL of the water soluble contrast dye [id number]-200 and observing an excellent epidurogram with the epidural spread of the dye, after negative aspiration for blood and CSF and in the absence of paresthesias. then, mixture containing 20 mg Dexamethasone and 2 ml of preservative-free normal saline injected and a washout of epidurogram was seen. Needle was withdrawn intact, skin was cleansed, and bandages were applied. Complications= none. Disposition= patient was placed in supine position and transferred to the recovery room area in stable condition and there was no evidence of upper or lower extremity motor or sensory deficit after the procedure patient was discharged from recovery room after discharge criteria met and home discharge instructions was given by the staff and patient will follow with the pain clinic in 2-4 weeks
[2021-04-02] MEDS ORDERED: IV FLUID CONTINUATION 1,000 ML IV ONE (08:32)
--- NOTE | 2021-04-02 08:36 | FL ---
Fluoroscopy INDICATION: Pain FINDINGS: Fluoroscopy time: 3 seconds. Images obtained: 1. IMPRESSIONS: 1. Documentation of fluoroscopy.
[2021-04-02 08:48] VITALS: BP 99/64; PULSE 72
== END 2021-04-02 09:01 | disposition home or self-care (01) ==
LOC: ORPAIN 07:25
PROVIDERS: ATTEND Specialist
DX: M47.22 Other spondylosis with radiculopathy, cervical region (principal); M50.10 Cervical disc disorder with radiculopathy, unspecified cervical region; Z90.710 Acquired absence of both cervix and uterus; Z88.6 Allergy status to analgesic agent; Z88.0 Allergy status to penicillin
CPT/HCPCS: 62321; J2250; J1100; Q9966

== ENCOUNTER → 2021-04-22 | Outpatient (CLI) | payer OTHER ==
[2021-04-22 08:39] VITALS: BP 127/72; PULSE 97; RESP 18; TEMP 98.7
--- NOTE | 2021-04-22 08:43 | P.PAINPG ---
Subjective Progress Note Date: 04/22/21 This is a 45-year-old lady with history of chronic neck pain with radiation to the left shoulder and upper arm. Saw her as a consult in the hospital in February and we have seen her in the pain clinic in the past. Her chief complaint was neck pain with weakness in the left arm. Has had 2 cervical spinal fusions using the anterior approach. Failed respond to physical therapy. Has used Russell 10 mg 3-4 times a day and gabapentin 800 mg TID from her primary care provider. Is currently on disability. We recently performed C7-T1 epidural steroid injection for her. She obtained greater than 80% relief and it is just starting to wear off for her. Most importantly she felt that the epidural helped decrease her migraine headaches and she was able to be significantly more functional. She is also trying home exercise regimen and will continue this. Review of Systems Constitutional: Denies chills, Denies fever Cardiovascular: Denies chest pain, Denies shortness of breath Respiratory: Denies cough Neurological: Reports as per HPI - Constitutiona General appearance: average body habitus - EENT Eyes: PERRLA - Integumentary Integumentary: no calor, no cellulitis, no cyanotic, no decreased turgor, no flushed, no jaundiced, no normal, no normal turgor, no pale, no rash, no ulcer - Neurologic Motor exam of the upper extremities showed normal and symmetrical biceps and triceps reflex bilaterally Normal muscle strength in the upper extremities bilaterally. No paraspinal tenderness Slightly decreased range of motion of the cervical spine especially to left rotation. Neurologic: CNII-XII intact - Psychiatric Psychiatric: A&O x's 3, appropriate affect, intact judgment & insight Results Results: Cervical spine MRI was done in January 2021 and showed the degenerative disc disease and postoperative changes foraminal encroachment at the C6-C7 level. Assessment and Plan Plan: This is a 45-year-old lady with neck pain with radiation to the left shoulder status post 2 cervical fusions. The patient has cervical spondylosis without myelopathy and left cervical radiculopathy. She failed to respond to physical therapy. The patient uses Russell for her pain currently and recently had C7-T1 ILESI x 1 with significant improvement, will schedule 2nd injection. I have spent 21 minutes on review of the records, review of the imaging available, [id number] interaction with the patient, medication management, follow-up care coordination and record creation. PQRS Measure Charge Sheet PQRS Narrative: Smoking Status Current every day smoker Pain Intensity [Neck] 8 Scale Used Numeric (1 - 10) Hx Alcohol Use (MH) No Home Medications: Ambulatory Orders Gabapentin [Neurontin] 800 mg PO TID 02/03/15 Fexofenadine HCl [Anaya Allergy] 60 mg PO DAILY 04/07/17 Albuterol Inhaler [Ventolin Hfa Inhaler] 2 puff INHALATION RT-QID PRN 03/16/21 Fluticasone/Salmeterol [Advair 250-50 Diskus] 1 inhalation PO BID 03/16/21 HYDROcodone/APAP 10-325MG [Russell 10-325] 1 tab PO Q6HR PRN 03/16/21 Melatonin 10 mg PO HS PRN 03/16/21 Methimazole [Tapazole] 2.5 mg PO DAILY 03/16/21 Montelukast [Singulair] 10 mg PO HS 03/16/21 Multivit with Calcium,Iron,Min [Women's Multivitamin] 1 each PO DAILY 04/01/21 Controlled Substance Measures - Controlled Substance Measures Is patient prescribed a controlled substance at discharge?: No
== END | disposition home or self-care (01) ==
LOC: PNWHC3 08:31
PROVIDERS: ATTEND Anesthesiology
DX: M47.22 Other spondylosis with radiculopathy, cervical region (principal); F17.200 Nicotine dependence, unspecified, uncomplicated; Z98.1 Arthrodesis status; Z79.891 Long term (current) use of opiate analgesic; Z79.899 Other long term (current) drug therapy
CPT/HCPCS: 99211

== ENCOUNTER 2021-04-30 10:53 | Day surgery (SDC) | payer OTHER ==
[2021-04-28 13:25] VITALS: BMI 22.3
[2021-04-30 11:15] VITALS: RESP 16; TEMP 98.3
[2021-04-30] MEDS ORDERED: IOPAMIDOL M200 10 ML VIAL ONE (11:20)
[2021-04-30] MEDS ORDERED: DEXAMETHASONE SOD PHOSPHATE 10 MG/ML 1 ML VIAL ONE (11:20)
[2021-04-30] MEDS ORDERED: fentaNYL (PF) 50 MCG/ML 2 ML AMP ONE (11:20)
[2021-04-30] MEDS ORDERED: MIDAZOLAM 2 MG/2 ML VIAL ONE (11:20)
--- NOTE | 2021-04-30 11:31 | P.PCN ---
Date of Procedure: 04/30/21 Procedure(s) Performed: PROCEDURE 1. Cervical epidural steroid injection under fluoroscopic guidance, C7-T1 (LEFT Paramedial )(fluoroscopy images available in the radiology department ) 2. Cervical epidurogram. PREOPERATIVE DIAGNOSIS: 1- Cervical Degenerative Disc Diseases 2- Cervical radiculopathy., 3-cervical spondylosis with cervical Facet arthropathy without myelopathy POSTOPERATIVE DIAGNOSIS: : 1- Cervical Degenerative Disc Diseases , 2- Cervical radiculopathy. 3-,cervical spondylosis with cervical Facet arthropathy without myelopathy ANESTHESIA: Local anesthesia with lidocaine 1 % , and moderate sedation, with Versed 2 mg and Fentanyle 100 mcg . EBL 0 PROCEDURE INDICATION: The patient with neck pain and radiculitis unresponsive to conservative treatment consents for procedure. PROCEDURE DESCRIPTION / TECHNIQUE: The patient was seen and identified in the preoperative area. Risks, benefits, complications, including but not limited to infections ,bleeding , allergic reactions to the medications ,and not complete pain releife, and alternatives were discussed with the patient, the patient agreed to proceed with the procedure and signed the consent. Patient was taken to the OR and time out was completed. The patient was placed in the prone position on the procedure table. A pillow was placed under the patients chest to increase the cervical interlaminar space. The cervical area was prepped and draped in the usual sterile fashion. Vital signs were closely monitored during the procedure. Conscious sedation was used during the procedure to decrease patients anxiety. Using anterior-posterior fluoroscopy, the C7-T1 interlaminar space was identif ied and the skin over this site was marked and then infiltrated with 1% lidocaine subcutaneously. Subsequently, a 20-gauge 3-1/2-inch Tuohy epidural needle was inserted (toward left side ) and advanced toward the epidural space by means of the ``hanging-drop technique and guided by AP and lateral fluoroscopy. The correct needle position in the epidural space was verified with the injection of 2 mL of the water soluble contrast dye Isovue-200 and observing an excellent epidurogram with the epidural spread of the dye, after negative aspiration for blood and CSF and in the absence of paresthesias. then, mixture containing 20 mg Dexamethasone and 2 ml of preservative-free normal saline injected and a washout of epidurogram was seen. Needle was withdrawn intact, skin was cleansed, and bandages were applied. Complications= none. Disposition= patient was placed in supine position and transferred to the recovery room area in stable condition and there was no evidence of upper or lower extremity motor or sensory deficit after the procedure patient was discharged from recovery room after discharge criteria met and home discharge instructions was given by the staff and patient will follow with the pain clinic in 2-4 weeks
[2021-04-30 11:53] VITALS: BP 95/54; PULSE 63
[2021-04-30] MEDS ORDERED: IV FLUID CONTINUATION 1,000 ML IV ONE (11:53)
--- NOTE | 2021-04-30 19:59 | FL ---
EXAMINATION TYPE: FL guided pain mgmt statistic DATE OF EXAM: 04/30/2021 FLUOROSCOPY Fluoroscopy time of 4 seconds was used during cervical epidural injection. 1 image/s document/s the procedure.
== END 2021-04-30 12:09 | disposition home or self-care (01) ==
LOC: ORPAIN 10:53
PROVIDERS: ATTEND Specialist
DX: M47.22 Other spondylosis with radiculopathy, cervical region (principal); M50.10 Cervical disc disorder with radiculopathy, unspecified cervical region; Z88.6 Allergy status to analgesic agent; Z90.710 Acquired absence of both cervix and uterus
CPT/HCPCS: 62321; J2250; J1100; J3010; Q9966

== ENCOUNTER → 2021-05-18 | Outpatient (CLI) | payer OTHER ==
[2021-05-18 07:48] VITALS: BP 102/60; PULSE 85; RESP 18; TEMP 98.3
--- NOTE | 2021-05-18 07:54 | P.PN ---
Subjective Progress Note Date: 05/18/21 This is a 45-year-old lady with history of chronic headache and left arm pain. The patient received 2 cervical spine epidural steroid injection which gave her 10 days of pain relief however her pain now is back to its baseline in the head on the left side of her occipital area but it is better still in the left arm with continued numbness in the left hand. The patient's headache gets worse with neck movement as she states. The patient is in distress due to the health issues with her disabled . Patient denies new-onset weakness, bowel/bladder incontinence, or any other signs or symptoms of cauda equina syndrome. There are no signs of acute intoxication, and no indications of medication diversion or overuse. In addition to above, 13-point review of systems is also negative for chest pain, shortness of breath, changes in vision, changes in hearing, new onset weakness, abdominal pain, diarrhea, extreme fatigue, malaise, fever, skin changes, homicidal or suicidal ideation, or bowel or bladder incontinence. Vital Signs: Reviewed in EMR Gen: AAOx3, NAD HEENT: PERRLA,hearing grossly normal Pulm: resp unlabored Neck: supple, trachea midline Neuro exam of the upper extremities: Normal muscle strength bilaterally and symmetrically Tenderness in the paravertebral musculature: Positive on the left side of her cervical spine and also in the occipital area on the left side. Neuro: CN II-XII grossly intact, Imaging: Reviewed in EMR/chart Assessment: Left cervical radiculopathy Cervicogenic headache Plan: 1. Explanation: Opioid and psychological risk scores were reviewed. Diagnoses, prognoses, and multiple treatment options including but not limited to physical therapy, interventional therapies, adjuvant medical therapies, narcotic medication therapies, and surgery were discussed with the patient and all questions were answered to the patient's satisfaction. 2. Opioid agreement: Signed with the patient and the patient is warned not to use opioids while driving or before driving and not to combine opioids with benzodiazepines or alcohol. 3. Counseling: The patient was counseled extensively on SMOKING CESSATION, BODY MASS INDEX, EXERCISE. Specifically, the patient was instructed regarding the importance of smoking cessation, obesity, and exercise in the context of both chronic pain and overall health. 4. Procedures: None for now however the patient may benefit from a diagnostic C2 , C3 and third occipital nerve block on the left side under fluoroscopic guidance. 5. Consultations: None 6. Investigations: None 7. Medications: The patient received Neurontin and [place] from her primary care physician and she is to continue using them as needed. 8. Disposition: Return to clinic as needed 9. Maps were reviewed and were appropriate. Objective - Vital Signs Vital signs: Vital Signs Temp 98.3 F 05/18/21 07:42 Pulse 85 05/18/21 07:42 Resp 18 05/18/21 07:42 BP 102/60 05/18/21 07:42 Pulse Ox 96 05/18/21 07:42
== END | disposition home or self-care (01) ==
LOC: PNWHC3 07:30
PROVIDERS: ATTEND Anesthesiology
DX: M54.12 Radiculopathy, cervical region (principal); R51.0 Headache with orthostatic component, not elsewhere classified
CPT/HCPCS: 99211

== ENCOUNTER 2021-06-12 07:15 | Day surgery (SDC) | payer OTHER ==
[2021-06-11 10:46] VITALS: BMI 22.3
[2021-06-12 07:37] VITALS: TEMP 98.1
[2021-06-12] MEDS ORDERED: LACTATED RINGERS 1,000 ML IV ONE (08:00)
[2021-06-12] MEDS ORDERED: ROPIVACAINE 5MG/ML 20ML VIAL ONE (08:13)
[2021-06-12] MEDS ORDERED: IOPAMIDOL M200 10 ML VIAL ONE (08:13)
[2021-06-12] MEDS ORDERED: DEXAMETHASONE SOD PHOSPHATE 10 MG/ML 1 ML VIAL ONE (08:13)
[2021-06-12] MEDS ORDERED: MIDAZOLAM 2 MG/2 ML VIAL ONE (08:13)
[2021-06-12] MEDS ORDERED: fentaNYL (PF) 50 MCG/ML 2 ML AMP ONE (08:13)
--- NOTE | 2021-06-12 08:25 | P.PCN ---
Description of Procedure: PREOPERATIVE DIAGNOSIS : Cervicalgia with Facet Arthropathy without myelopathy POSTOPERATIVE DIAGNOSIS: same PROCEDURE: first Diagnostic cervical medial branch block with fluoroscopy at TON, C3 left side which covers facets C2-C3 #1 ANESTHESIA: Local anesthetic; moderate IV sedation Fluoroscopy was used for the procedure and images were saved in the radiology portion of the chart. Surgeon: Juan Francisco Berger MD PROCEDURE INDICATION: Cervical pain without radiculopathy, not responsive to conservative management. PROCEDURE DESCRIPTION: the patient was seen and identified in the preop holding area , risks and benefits and possible complications of the procedure and alternatives were discussed with the patient, and the patient agreed to proceed with the procedure and signed the consent . IV was started , vital signs were monitored during the procedure and fluoroscopy was used to maximize the benefit and accuracy of the needle placement, and sedation was given to decrease patient anxiety. Patient was taken to the procedure room and placed in prone position. An AP fluoroscopic beauty counselor film was taken to identify the dens, the C2, C3, vertebral bodies, and the waists of the articular pillars at the aforementioned levels. A lateral view was utilized to highlight the waists of the articular pillars at these levels. The skin was prepped with chlorhexidine and draped in the usual sterile fashion. The skin and subcutaneous tissue overlying the above levels were anesthetized using a 25-gauge 1-1/2-inch needle with 1% preservative free lidocaine for a total volume of 1 ml per level. An AP fluoroscopic beauty counselor film was taken to identify the dens, the C2 C3 vertebral bodies, and the center of the centroid at the aforementioned levels. A lateral view was utilized to highlight the centroids at these levels. The skin was prepped with chlorhexidine and draped in the usual sterile fashion. The skin and subcutaneous tissue overlying the above levels were anesthetized using a 25- gauge 1-1/2-inch needle with 1% preservative free lidocaine for a total volume of 1 ml per level. An 25-gauge 3.5" Quinke needle was advanced, coaxially, in the lateral view until the needle tip was noted to slide into the center of the centroid. The needles were advanced until bony contact was felt and the tip of the Quinke needle was confirmed to be in the center of the articular pillars at C3. The needle positions were confirmed with AP and lateral fluoroscopic views. 0.2 mL of Isovue 200 per level was injected which revealed no vascular uptake and after negative aspiration and showed adequate coverage of TON and C3 with same injection, mixture of 0.5 mL ropivicaine and 5 mg dexamethasone was used, 1 mLwas injected and the needle subsequently removed . Total of 5 mg dexamethasone used. At the end of the procedure and the needles were removed and a bandage applied after the skin was cleaned. The patient was taken to recovery room in stable condition and monitors in the recovery room for 20-30 minutes and discharged home in stable condition after discharge criteria met and patient will follow up procedure in 2 weeks EBL: Minimal COMPLICATION: None.
[2021-06-12] MEDS ORDERED: IV FLUID CONTINUATION 1,000 ML IV ONE (08:28)
[2021-06-12 08:33] VITALS: RESP 14
--- NOTE | 2021-06-12 08:43 | FL ---
Fluoroscopy INDICATION: Pain FINDINGS: Fluoroscopy time: 3 seconds. Images obtained: 1. IMPRESSIONS: 1. Documentation of fluoroscopy.
[2021-06-12 08:47] VITALS: BP 98/61; PULSE 67
== END 2021-06-12 08:58 | disposition home or self-care (01) ==
LOC: ORPAIN 07:15
PROVIDERS: ATTEND Anesthesiology
DX: M54.2 Cervicalgia (principal); J44.9 Chronic obstructive pulmonary disease, unspecified; E07.9 Disorder of thyroid, unspecified; Z79.51 Long term (current) use of inhaled steroids; Z88.0 Allergy status to penicillin
CPT/HCPCS: 64490; 64491; J2250; J1100; J3010; Q9966; J2795

== ENCOUNTER → 2021-06-17 | Outpatient (CLI) | payer OTHER ==
[2021-06-17 09:29] VITALS: BP 96/60; PULSE 65; RESP 18; TEMP 98.5
--- NOTE | 2021-06-17 09:50 | P.PAINPG ---
Subjective Progress Note Date: 06/17/21 This is a 45-year-old lady with history of chronic headache and left arm pain. The patient received 2 cervical spine epidural steroid injection which gave her 10 days of 100% pain relief. She had mentioned in her previous visit that after the pain returned she was still having pain in the head bilaterally with radiation into the vertex and occasionally into her forehead as well as pain radiating into the left hand. We performed a left C2-C3 medial branch block for her but this unfortunately made her pain much worse. She had questions regarding why the levels were different and I explained to her the concept of doing epidural C7-T1 due to ligamentum flavum being fused most reliably at this level and doing a C2-C3 medial branch block based on her occipital headache. She notes that most of her pain is concentrated in her head and can occur bilaterally and seems to get worse at night. She mentions a previous epidurals are extremely helpful given her 10 days of no migraines and no pain but the pain would always returns suddenly after about 10 days. Patient denies new-onset weakness, bowel/bladder incontinence, or any other signs or symptoms of cauda equina syndrome. There are no signs of acute intoxication, and no indications of medication diversion or overuse. In addition to above, 13-point review of systems is also negative for chest pain, shortness of breath, changes in vision, changes in hearing, new onset weakness, abdominal pain, diarrhea, extreme fatigue, malaise, fever, skin changes, homicidal or suicidal ideation, or bowel or bladder incontinence. Vital Signs: Reviewed in EMR Gen: AAOx3, NAD HEENT: PERRLA,hearing grossly normal Pulm: resp unlabored Neck: supple, trachea midline Neuro exam of the upper extremities: Normal muscle strength bilaterally and symmetrically Tenderness in the paravertebral musculature: Positive on the left side of her cervical spine and also in the occipital area on the left side. Neuro: CN II-XII grossly intact, Imaging: Reviewed in EMR/chart Assessment: Left cervical radiculopathy Cervicogenic headache Plan: - I will repeat another C7-T1 epidural steroid injection in hopes of getting longer-lasting relief. I did mention this to be her third steroid injection and a short interval of time and then moving forward we would want to space these injections out. She understands this. - I encouraged her to ask her primary care doctor for a neurology referral given that her constellation of symptoms seems that she is having migraine headaches and there are a number of therapies that are available for that that could be helpful for her. - She also sees a surgeon in [facility] who had requested that she try the medial branch block prior to revisiting possible surgical options. I encouraged her to let that surgeon no that unfortunately our injection did not help her headache at all and that her headache is likely more migraine in nature rather than being mediated from cervical spine. I have spent 33 minutes on patient care today. The time was used to review the medical records including relevant urine studies and prescription history, review of the available imaging, evaluation and examination of the patient, coordination of care with the medical staff and if applicable referring physicians, as well as creation of the medical record. PQRS Measure Charge Sheet PQRS Narrative: Smoking Status Current every day smoker Hx Alcohol Use (MH) No Home Medications: Ambulatory Orders Gabapentin [Neurontin] 800 mg PO TID 02/03/15 Fexofenadine HCl [Anaya Allergy] 60 mg PO DAILY 04/07/17 Fluticasone/Salmeterol [Advair 250-50 Diskus] 1 inhalation PO BID 03/16/21 HYDROcodone/APAP 10-325MG [[place] 10-325] 1 tab PO Q6HR PRN 03/16/21 Melatonin 10 mg PO HS PRN 03/16/21 Methimazole [Tapazole] 2.5 mg PO HS 03/16/21 Montelukast [Singulair] 10 mg PO HS 03/16/21 Multivit with Calcium,Iron,Min [Women's Multivitamin] 1 each PO DAILY 04/01/21 Albuterol Inhaler [Ventolin Hfa Inhaler] 1 - 2 puff INHALATION Q4HR PRN 04/28/21 Controlled Substance Measures - Controlled Substance Measures Is patient prescribed a controlled substance at discharge?: No
== END | disposition home or self-care (01) ==
LOC: PNWHC3 09:13
PROVIDERS: ATTEND Anesthesiology
DX: M54.12 Radiculopathy, cervical region (principal); R51.9 Headache, unspecified; F17.200 Nicotine dependence, unspecified, uncomplicated
CPT/HCPCS: 99211

== ENCOUNTER 2021-07-21 07:14 | Day surgery (SDC) | payer OTHER ==
[2021-07-21 08:06] VITALS: TEMP 98.5
[2021-07-21] MEDS ORDERED: LACTATED RINGERS 1,000 ML IV ONE (08:07)
[2021-07-21] MEDS ORDERED: IOPAMIDOL M200 10 ML VIAL ONE (08:26)
[2021-07-21] MEDS ORDERED: fentaNYL (PF) 50 MCG/ML 2 ML AMP ONE (08:26)
[2021-07-21] MEDS ORDERED: DEXAMETHASONE SOD PHOSPHATE 10 MG/ML 1 ML VIAL ONE (08:26)
[2021-07-21] MEDS ORDERED: MIDAZOLAM 2 MG/2 ML VIAL ONE (08:26)
--- NOTE | 2021-07-21 08:41 | P.PCN ---
Date of Procedure: 07/21/21 Surgeon: Joselo Hook Pathology: none sent Condition: stable Disposition: PACU Description of Procedure: PROCEDURE 1. Cervical epidural steroid injection under fluoroscopic guidance, C7-T1 left paramedian approach. 2. Cervical epidurogram. : PREOPERATIVE DIAGNOSIS: Cervical radiculopathy, cervical spondylosis without myelopathy POSTOPERATIVE DIAGNOSIS: : Same as above ANESTHESIA: Local anesthesia with 1% lidocaine and IV moderate conscious sedation with Versed and Fentanyl . EBL 0 PROCEDURE INDICATION: The patient with neck pain and radiculopathy unresponsive to conservative treatment consents for procedure. PROCEDURE DESCRIPTION / TECHNIQUE: The patient was seen and identified in the preoperative area. Risks, benefits, complications, including but not limited to infections ,bleeding , allergic reactions to the medications ,and not complete pain relief, and alternatives were discussed with the patient, the patient agreed to proceed with the procedure and signed the consent. Patient was taken to the OR and time out was completed. The patient was placed in the prone position on the procedure table. A pillow was placed under the patients chest to increase the flexion of the cervical spine . The cervical area was prepped and draped in the usual sterile fashion. Vital signs were closely monitored during the procedure. Conscious sedation was used during the procedure to decrease patients anxiety. Using anterior-posterior fluoroscopy, the C7-T1 interlaminar space was identified and the skin over this site was marked and then infiltrated with 1% lidocaine subcutaneously. Subsequently, a 20-gauge 3-1/2-inch Tuohy epidural needle was inserted and advanced toward the epidural space by means of loss of resistance to air technique and guided by AP and lateral fluoroscopy. The needle tip contacted the lamina of T1 vertebra first, then it was walked off bone and into the epidural space using the loss of to air and fluoroscopic guidance to identify the epidural space. The correct needle position in the epidural space was verified with the injection of 1 mL of the water soluble contrast dye Isovue and observing an excellent epidurogram with the epidural spread of the dye, after negative aspiration for blood and CSF and in the absence of paresthesias. Again after negative aspiration, a 2 ml mixture containing 10 mg of Decadron and 1 ml of preservative free Normal Saline solution was injected and a washout of epidurogram was seen. Needle was withdrawn intact, skin was cleansed, and bandages were applied. A copy of the needle placement picture was saved to the fluoroscopy machine.
[2021-07-21] MEDS ORDERED: IV FLUID CONTINUATION 1,000 ML IV ONE (08:48)
[2021-07-21 08:52] VITALS: RESP 16
--- NOTE | 2021-07-21 08:53 | FL ---
EXAMINATION TYPE: FL guided pain mgmt statistic DATE OF EXAM: 07/21/2021 CLINICAL HISTORY: Neck pain. TECHNIQUE: Fluoroscopy. COMPARISON: None. FINDINGS: Fluoroscopic guidance was provided during pain relief procedure performed by Dr. Hook . A total of 4 seconds of fluoroscopic time was utilized during the procedure and 1 spot images are a cquired. Single image acquired shows needle localization near level of the cervical thoracic junctio n. IMPRESSION: As Above.
[2021-07-21 09:05] VITALS: BP 98/62; PULSE 87
== END 2021-07-21 09:17 | disposition home or self-care (01) ==
LOC: ORPAIN 07:14
PROVIDERS: ATTEND Anesthesiology
DX: M47.22 Other spondylosis with radiculopathy, cervical region (principal); F41.9 Anxiety disorder, unspecified
CPT/HCPCS: 62321; J2250; J1100; J3010; Q9966; 99152

== ENCOUNTER 2021-09-15 18:06 | Emergency (ER) | payer OTHER ==
[2021-09-15] MEDS ORDERED: HYDROmorphone 1 MG/ML 1 ML SYRINGE IM STA (20:19)
--- NOTE | 2021-09-15 20:24 | ED ---
General Adult HPI - General Chief complaint: Head Injury Stated complaint: fall/head injury Time Seen by Provider: 09/15/21 20:12 Source: patient, RN notes reviewed Mode of arrival: ambulatory Limitations: no limitations - History of Present Illness Initial comments: Patient is a pleasant 46-year-old female presenting to the emergency department following a fall. Incident occurred earlier today. Patient was raking leaves and tried to move a bunch. Patient fell back and struck the back of her head. No loss of consciousness. Patient did see bright lights for a couple of seconds. Patient has posterior headache and neck discomfort since that time. Patient does have history of previous neck surgery with plan for revision. No weakness. - Related Data Home Medications Medication Instructions Recorded Confirmed Gabapentin [Neurontin] 800 mg PO TID 02/03/15 09/15/21 Fluticasone/Salmeterol [Advair 1 puff INHALATION RT-BID 03/16/21 09/15/21 250-50 Diskus] HYDROcodone/APAP 10-325MG [[place] 1 tab PO Q6HR PRN 03/16/21 09/15/21 10-325] Methimazole [Tapazole] 2.5 mg PO HS 03/16/21 09/15/21 Montelukast [Singulair] 10 mg PO HS 03/16/21 09/15/21 Albuterol Inhaler [Ventolin Hfa 2 puff INHALATION RT-Q4H PRN 04/28/21 09/15/21 Inhaler] Fexofenadine HCl [Anaya Allergy] 180 mg PO DAILY 09/15/21 09/15/21 Allergies Allergy/AdvReac Type Severity Reaction Status Date / Time ketorolac [From Toradol] Allergy Dyspnea Verified 09/15/21 21:12 NSAIDS (Non-Steroidal Allergy Dyspnea Verified 09/15/21 21:12 Anti-Inflamma Penicillins Allergy Rash/Hives Verified 09/15/21 21:12 Review of Systems ROS Statement: Those systems with pertinent positive or pertinent negative responses have been documented in the HPI. ROS Other: All systems not noted in ROS Statement are negative. Constitutional: Denies: fever Eyes: Denies: eye pain ENT: Denies: ear pain Respiratory: Denies: cough Cardiovascular: Denies: chest pain Endocrine: Denies: fatigue Gastrointestinal: Denies: abdominal pain Genitourinary: Denies: dysuria Musculoskeletal: Reports: as per HPI Neurological: Reports: as per HPI, headache. Denies: weakness, paresthesias, confusion Past Medical History Past Medical History: Asthma, Musculoskeletal Disorder, Thyroid Disorder Additional Past Medical History / Comment(s): ALLERGY INDUCED ASTHMA, chronic back pain, migraines, degenerative and herniated discs, spinal stenosis, neck pain. History of Any Multi-Drug Resistant Organisms: None Reported Past Surgical History: Back Surgery, Hysterectomy, Tonsillectomy Additional Past Surgical History / Comment(s): Cervical fusion and cervical decompression C4-5 then C5-6, REMOVAL OF HARDWARE from C5-C6. Past Anesthesia/Blood Transfusion Reactions: No Reported Reaction, Motion Sickness Past Psychological History: Anxiety Smoking Status: Current some day smoker Past Alcohol Use History: None Reported Past Drug Use History: None Reported - Past Family History Mother Family Medical History: No Reported History Father Family Medical History: No Reported History General Exam Limitations: no limitations General appearance: alert, in no apparent distress Head exam: Present: atraumatic, normocephalic Eye exam: Present: normal appearance, PERRL, EOMI. Absent: nystagmus ENT exam: Present: normal oropharynx Neck exam: Present: normal inspection, other (No midline tenderness. Patient does have mild tenderness bilateral lateral cervical region, more upper.) Respiratory exam: Present: normal lung sounds bilaterally. Absent: chest wall tenderness Cardiovascular Exam: Present: regular rate, normal rhythm GI/Abdominal exam: Present: soft. Absent: tenderness Extremities exam: Present: normal inspection Back exam: Present: normal inspection. Absent: vertebral tenderness Neurological exam: Present: alert, CN II-XII intact. Absent: motor sensory deficit Expanded Neurological exam: Present: protecting the airway Speech: Present: fluid speech Cranial nerves: EOM's Intact: Normal Sensory exam: Upper Extremity Light Touch: Normal, Lower Extremity Light Touch: Normal Motor strength exam: RUE: 5, LUE: 5, RLE: 5, LLE: 5 Eye Response: (4) open spontaneously Motor Response: (6) obeys commands Verbal Response: (5) oriented Psychiatric exam: Present: normal affect, normal mood Skin exam: Present: normal color Course Vital Signs 09/15/21 19:03 Temperature 98.7 F Pulse Rate 90 Respiratory 18 Rate Blood Pressure 114/63 O2 Sat by Pulse 99 Oximetry Medical Decision Making - Medical Decision Making Patient reevaluated and updated - Radiology Data Radiology results: report reviewed (Computed tomography scan of brain and cervical spine reveal no acute abnormality.) Disposition Clinical Impression: Fall, Head contusion, Cervical strain Disposition: HOME SELF-CARE Condition: Stable Instructions (If sedation given, give patient instructions): Head Injury (ED), Cervical Strain (ED) Additional Instructions: Please follow-up with primary care physician as well as her neck doctor in the next few days for recheck. Return for weakness, change in mental status, persistent vomiting, coordination problems, worsening or changing symptoms or other concerns. Is patient prescribed a controlled substance at d/c from ED?: No Referrals: Mylene Rodriguez MD [Primary Care Provider] - 1-2 days Time of Disposition: 21:27
--- NOTE | 2021-09-15 21:21 | CT ---
EXAMINATION TYPE: CT brain dana gusman DATE OF EXAM: 09/15/2021 COMPARISON: 12/26/2020 HISTORY: fall, posterior head injury CT DLP: 1204.3 mGycm Automated exposure control for dose reduction was used. TECHNIQUE: CT scan of the head and cervical spine are performed without contrast. FINDINGS: There is no acute intracranial hemorrhage, mass effect, or midline shift identified. No abnormal extra-axial fluid collection. The ventricles and sulci are within normal limits in size. No depressed calvarial fracture. Mastoid air cells and paranasal sinuses are clear. There is anterior fixation hardware at C4-C5 and interbody fusion from C4-C5 and C5-C6. There is stra ightening of the cervical lordosis. Vertebral body heights are maintained. No acute fracture. There i s biapical pleural thickening. IMPRESSION: 1. There is no acute fracture or subluxation evident in the cervical spine. 2. No acute intracranial hemorrhage, mass effect, or midline shift is seen.
[2021-09-15 21:47] VITALS: BP 116/78; PULSE 84; RESP 20; TEMP 98.6
== END 2021-09-15 21:46 | disposition home or self-care (01) ==
LOC: EC 18:06
DX: S16.1XXA Strain of muscle, fascia and tendon at neck level, initial encounter (principal); S00.93XA Contusion of unspecified part of head, initial encounter; J45.909 Unspecified asthma, uncomplicated; F17.200 Nicotine dependence, unspecified, uncomplicated; Z88.6 Allergy status to analgesic agent; Z88.0 Allergy status to penicillin; Z79.51 Long term (current) use of inhaled steroids; W18.39XA Other fall on same level, initial encounter; Y93.H1 Activity, digging, shoveling and raking
CPT/HCPCS: 72125; 70450; 96372; 99284; J1170

== ENCOUNTER → 2022-04-07 | Outpatient (CLI) | payer OTHER ==
--- NOTE | 2022-04-07 14:21 | XR ---
EXAMINATION TYPE: XR shoulder complete RT DATE OF EXAM: 04/07/2022 COMPARISON: None available INDICATION: Right shoulder pain, injury TECHNIQUE: 3 views of the right shoulder FINDINGS: Mild degenerative changes of the right acromioclavicular joint. Unremarkable glenohumeral articulatio n. No humeral head dislocation or significant subluxation. No definite acute fracture line identified. No signs of rotator cuff calcific tendinitis. Maintained acromiohumeral distance. IMPRESSION: No definite acute fracture or dislocation.
== END | disposition home or self-care (01) ==
LOC: RADXRMAIN 10:10
PROVIDERS: ATTEND Internal Medicine
DX: M25.511 Pain in right shoulder (principal)

== ENCOUNTER 2022-11-22 10:17 | Emergency (ER) | payer OTHER ==
[2022-11-22 10:25] VITALS: BP 114/58; PULSE 79; RESP 20; TEMP 98.5
[2022-11-22] MEDS ORDERED: ORPHENADRINE 30 MG/ML 2 ML VIAL IM STA (11:44)
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
== END 2022-11-22 12:47 | disposition home or self-care (01) ==
LOC: EC 10:17
DX: S16.1XXA Strain of muscle, fascia and tendon at neck level, initial encounter (principal); J45.909 Unspecified asthma, uncomplicated; E07.9 Disorder of thyroid, unspecified; F17.200 Nicotine dependence, unspecified, uncomplicated; Z88.0 Allergy status to penicillin; Z88.6 Allergy status to analgesic agent; Z90.710 Acquired absence of both cervix and uterus; Z90.89 Acquired absence of other organs; Z79.899 Other long term (current) drug therapy; V47.5XXA Car driver injured in collision with fixed or stationary object in traffic accident, initial encounter; Y92.410 Unspecified street and highway as the place of occurrence of the external cause
CPT/HCPCS: 72125; 70450; 99284; 96372; J2360

== ENCOUNTER 2023-05-08 12:24 | Emergency (ER) | payer OTHER ==
[2023-05-08 12:41] VITALS: TEMP 98.9
[2023-05-08] MEDS ORDERED: SODIUM CHLORIDE 0.9% 500 ML 500 ML IV STA (12:57)
[2023-05-08] MEDS ORDERED: MORPHINE SULFATE 4 MG/ML SYRINGE IVP STA (12:59)
--- NOTE | 2023-05-08 13:05 | ED ---
General Adult HPI - General Source: patient, RN notes reviewed, old records reviewed Mode of arrival: ambulatory Limitations: no limitations - History of Present Illness -: hour(s) (5) Location: head, neck (left side) Consistency: constant Improves with: none Worsens with: movement Associated Symptoms: headaches, other (neck pain, left eyelid swelling) Treatments Prior to Arrival: none <Nas Hensley - Last Filed: 05/08/23 18:03> <Buck Garces - Last Filed: 05/08/23 21:03> - General Chief complaint: Neck Pain/Injury Stated complaint: Neck Pain Time Seen by Provider: 05/08/23 12:45 - History of Present Illness Initial comments: 47-year-old female presents to the emergency room with complaints of left-sided neck pain, left upper eyelid swelling and occipital headache since 7 AM. States she woke up at 6 AM and had no symptoms. Patient denies any injuries. No fevers. No nausea vomiting. No vision changes. She does have a history of asthma, spinal stenosis, herniated disc, chronic neck and back pain and migraines. (Nas Hensley) - Related Data Home Medications Medication Instructions Recorded Confirmed Gabapentin [Neurontin] 800 mg PO TID 02/03/15 09/15/21 Fluticasone Propion/Salmeterol 1 puff INHALATION RT-BID 03/16/21 09/15/21 [Advair 250-50 Diskus] HYDROcodone/APAP 10-325MG [[place] 1 tab PO Q6HR PRN 03/16/21 09/15/21 10-325] Montelukast [Singulair] 10 mg PO HS 03/16/21 09/15/21 methIMAzole [Tapazole] 2.5 mg PO HS 03/16/21 09/15/21 Albuterol Inhaler [Ventolin Hfa 2 puff INHALATION RT-Q4H PRN 04/28/21 09/15/21 Inhaler] Fexofenadine HCl [Anaya Allergy] 180 mg PO DAILY 09/15/21 09/15/21 Previous Rx's Medication Instructions Recorded Cyclobenzaprine [Flexeril] 10 mg PO TID PRN #15 tab 05/08/23 Lidocaine 5% Patch [Lidoderm] 1 patch TOPICAL DAILY 14 Days #14 05/08/23 patch Allergies Allergy/AdvReac Type Severity Reaction Status Date / Time ketorolac [From Toradol] Allergy Dyspnea Verified 05/08/23 12:40 NSAIDS (Non-Steroidal Allergy Dyspnea Verified 05/08/23 12:40 Anti-Inflamma Penicillins Allergy Rash/Hives Verified 05/08/23 12:40 Review of Systems ROS Other: All systems not noted in ROS Statement are negative. <Nas Hensley - Last Filed: 05/08/23 18:03> ROS Other: All systems not noted in ROS Statement are negative. <Buck Garces - Last Filed: 05/08/23 21:03> ROS Statement: Those systems with pertinent positive or pertinent negative responses have been documented in the HPI. Past Medical History Past Medical History: Asthma, Musculoskeletal Disorder, Thyroid Disorder Additional Past Medical History / Comment(s): ALLERGY INDUCED ASTHMA, chronic back pain, migraines, degenerative and herniated discs, spinal stenosis, neck pain. History of Any Multi-Drug Resistant Organisms: None Reported Past Surgical History: Back Surgery, Hysterectomy, Tonsillectomy Additional Past Surgical History / Comment(s): Cervical fusion and cervical decompression C4-5 then C5-6, REMOVAL OF HARDWARE from C5-C6. Past Anesthesia/Blood Transfusion Reactions: No Reported Reaction, Motion Sickness Past Psychological History: Anxiety Smoking Status: Current some day smoker Past Alcohol Use History: None Reported Past Drug Use History: None Reported - Past Family History Mother Family Medical History: No Reported History Father Family Medical History: No Reported History <Nas Hensley - Last Filed: 05/08/23 18:03> General Exam Limitations: no limitations General appearance: alert, in no apparent distress Head exam: Present: atraumatic, normocephalic, normal inspection Eye exam: Present: normal appearance, EOMI, other (left upper eyelid swelling). Absent: scleral icterus, conjunctival injection, nystagmus ENT exam: Present: mucous membranes moist Neck exam: Present: tenderness (left side), other (left JVD). Absent: thyromegaly Respiratory exam: Absent: respiratory distress, accessory muscle use Cardiovascular Exam: Present: regular rate GI/Abdominal exam: Present: soft Extremities exam: Present: full ROM, normal capillary refill. Absent: tenderness, pedal edema, calf tenderness Neurological exam: Present: alert, oriented X3 Psychiatric exam: Present: normal affect, normal mood Skin exam: Present: warm, dry, normal color. Absent: cyanosis, diaphoretic, petechiae, pallor <Nas Hensley - Last Filed: 05/08/23 18:03> Course Vital Signs 05/08/23 05/08/23 05/08/23 12:37 13:15 16:30 Temperature 98.9 F Pulse Rate 72 73 65 Respiratory 18 15 14 Rate Blood Pressure 110/69 112/74 98/66 O2 Sat by Pulse 99 97 100 Oximetry Medical Decision Making - Lab Data Result diagrams: 05/08/23 13:15 05/08/23 13:15 <Nas Hensley - Last Filed: 05/08/23 18:03> - Lab Data Result diagrams: 05/08/23 13:15 05/08/23 13:15 <Buck Garces - Last Filed: 05/08/23 21:03> - Medical Decision Making Was pt. sent in by a medical professional or institution (, PA, SAFETY TECHNICIAN, urgent care, hospital, or correction...) When possible be specific @ -No Did you speak to anyone other than the patient for history (EMS, parent, family, police, friend...)? What history was obtained from this source @ -No Did you review nursing and triage notes (agree or disagree)? Why? @ -I reviewed and agree with nursing and triage notes Were old charts reviewed (outside hosp., previous admission, EMS record, old EKG, old radiological studies, urgent care reports/EKG's, correction records)? Report findings @ -CT head and cervical spine August 2021 in October 2022 Differential Diagnosis (chest pain, altered mental status, abdominal pain women, abdominal pain men, vaginal bleeding, weakness, fever, dyspnea, syncope, headache, dizziness, GI bleed, back pain, seizure, CVA, palpatations, mental health, musculoskeletal)? @ -Differential Headache: Migraine, tension, cluster, carbon monoxide, central venous thrombosis, pension karma temporal arteritis, acute closure glaucoma, intercranial hemorrhage, mastoiditis, sinusitis, head injury, musculoskeletal pain cervical strain , this is not meant to be an all-inclusive list. EKG interpreted by me (3pts min.). @ -n/a X-rays interpreted by me (1pt min.). @ -None done CT interpreted by me (1pt min.). @ -no U/S interpreted by me (1pt. min.). @ -None done What testing was considered but not performed or refused? (CT, X-rays, U/S, labs)? Why? @ -None What meds were considered but not given or refused? Why? @ -None Did you discuss the management of the patient with other professionals (professionals i.e. , PA, SAFETY TECHNICIAN, lab, RT, psych nurse, social science professor, military cook, teacher, property and supply officer, counter caser)? Give summary @ -No Was smoking cessation discussed for >3mins.? @ -No Was critical care preformed (if so, how long)? @ -No Were there social determinants of health that impacted care today? How? (Homelessness, low income, unemployed, alcoholism, drug addiction, transportation, low edu. Level, literacy, decrease access to med. care, [facility], rehab)? @ -No Was there de-escalation of care discussed even if they declined (Discuss DNR or withdrawal of care, Hospice)? DNR status @ -No What co-morbidities impacted this encounter? (DM, HTN, Smoking, COPD, CAD, Cancer, CVA, ARF, Chemo, Hep., AIDS, mental health diagnosis, sleep apnea, morbid obesity)? @ -She does have a history of asthma, spinal stenosis, herniated disc, chronic neck and back pain and migraines. Was patient admitted / discharged? Hospital course, mention meds given and route, prescriptions, significant lab abnormalities, going to OR and other pertinent info. @ -Discharged 47-year-old female presents to the emergency room with complaints of left-sided neck pain, left upper eyelid swelling and occipital headache since 7 AM. States she woke up at 6 AM and had no symptoms. Patient denies any injuries. No fevers. No nausea vomiting. No vision changes. Patient has CT of the head and cervical spine August 2021 and October 2022. Most recent head and cervical spine CT shows no acute intracranial process. No evidence of cervical spine fracture. Postsurgical changes from anterior cervical fusion. Hardware intact. Fusion plate fixation screws involving C4 C7 On exam JVD noted left side. No temporal artery tenderness. Temporal pulses present. CBC unremarkable CRP slightly elevated at 2.9. ESR 7. CT of the brain without contrast shows no acute intracranial process. CT angiogram head and neck show no evidence of dissection of the cervical internal carotid arteries or vertebral arteries or any evidence of significant stenosis of carotid. No evidence of intracranial high-grade stenosis or intrac ranial aneurysm. Patient was given IV fluids and morphine with improvement. Norflex given as a muscle relaxer with near complete resolution of her symptoms. She is agreeable to discharge and following up with her primary care doctor. Dr. Garces at bedside to evaluate patient agreeable to discharge. Undiagnosed new problem with uncertain prognosis? @ -No Drug Therapy requiring intensive monitoring for toxicity (Heparin, Nitro, Insulin, Cardizem)? @ -No Were any procedures done? @ -No Diagnosis/symptom? @ -Musculoskeletal neck pain, cervicalgia Acute, or Chronic, or Acute on Chronic? @ -Acute on chronic Uncomplicated (without systemic symptoms) or Complicated (systemic symptoms)? @ -Uncomplicated Side effects of treatment? @ -No Exacerbation, Progression, or Severe Exacerbation? @ -No Poses a threat to life or bodily function? How? (Chest pain, [place], [place], pneumonia, PE, COPD, DKA, ARF, appy, cholecystitis, CVA, Diverticulitis, Homicidal, Suicidal, threat to staff... and all critical care pts) @ -No (Nas Hensley) Patient was reevaluated by myself. Patient does have prominent left external jugular vein patient believes this is chronic. No significant swelling otherwise. Vein is nontender. No arm swelling. Patient presents with symptoms were consistent with posterior trapezius strain and headache. Reports reviewed. SUPERVISORY NOTE: I have reviewed all documentation, results, and performed the MDM in its entirety, which constitutes a substantive portion of the visit. (Buck Garces) - Lab Data Lab Results 05/08/23 05/08/23 Range/Units 13:15 13:15 WBC 7.7 (3.8-10.6) k/uL RBC 4.40 (3.80-5.40) m/uL Hgb 13.9 (11.4-16.0) gm/dL Hct 43.0 (34.0-46.0) % MCV 97.8 (80.0-100.0) fL MCH 31.7 (25.0-35.0) pg MCHC 32.4 (31.0-37.0) g/dL RDW 14.4 (11.5-15.5) % Plt Count 335 (150-450) k/uL MPV 7.4 Neutrophils % 64 % Lymphocytes % 29 % Monocytes % 4 % Eosinophils % 1 % Basophils % 0 % Neutrophils # 4.9 (1.3-7.7) k/uL Lymphocytes # 2.2 (1.0-4.8) k/uL Monocytes # 0.3 (0-1.0) k/uL Eosinophils # 0.1 (0-0.7) k/uL Basophils # 0.0 (0-0.2) k/uL ESR 7 (0-20) mm/hr Sodium 138 (137-145) mmol/L Potassium 4.5 (3.5-5.1) mmol/L Chloride 108 H (98-107) mmol/L Carbon Dioxide 24 (22-30) mmol/L Anion Gap 6 mmol/L BUN 10 (7-17) mg/dL Creatinine 0.45 L (0.52-1.04) mg/dL Est GFR (CKD-EPI)AfAm >90 (>60 ml/min/1.73 sqM) Est GFR (CKD-EPI)NonAf >90 (>60 ml/min/1.73 sqM) Glucose 82 (74-99) mg/dL Calcium 9.0 (8.4-10.2) mg/dL Total Bilirubin 0.3 (0.2-1.3) mg/dL AST 23 (14-36) U/L ALT 21 (4-34) U/L Alkaline Phosphatase 83 (38-126) U/L C-Reactive Protein 2.9 H (<1.0) mg/dL Total Protein 6.4 (6.3-8.2) g/dL Albumin 3.9 (3.5-5.0) g/dL Disposition Is patient prescribed a controlled substance at d/c from ED?: No Time of Disposition: 14:43 <Nas Hensley - Last Filed: 05/08/23 18:03> <Buck Garces - Last Filed: 05/08/23 21:03> Clinical Impression: Musculoskeletal neck pain, Cervicalgia Disposition: HOME SELF-CARE Condition: Good Instructions (If sedation given, give patient instructions): Musculoskeletal Pa in (ED), Chronic Neck Pain (DC) Additional Instructions: Continue your previously prescribed pain medications. You can use [id number] topical pain relievers. Flexeril as needed . Do not drive or operate heavy machinery when taking this medication. Follow-up with your primary care doctor this week. Return to the emergency room with any new or concerning symptoms. Prescriptions: Cyclobenzaprine [Flexeril] 10 mg PO TID PRN #15 tab PRN Reason: Muscle Spasm Lidocaine 5% Patch [Lidoderm] 1 patch TOPICAL DAILY 14 Days #14 patch Referrals: Mylene Rodriguez MD [Primary Care Provider] - 1-2 days
[2023-05-08 13:35] LABS: Basophils % (A) 0 %; Eosinophils # (A) 0.1 k/uL (0-0.7); Eosinophils % (A) 1 %; HGB 13.9 gm/dL (11.4-16.0); Lymphocytes # (A) 2.2 k/uL (1.0-4.8); Lymphocytes % (A) 29 %; MCH 31.7 pg (25.0-35.0); MCHC 32.4 g/dL (31.0-37.0); MCV 97.8 fL (80.0-100.0); Mean Platelet Volume 7.4; Monocytes # (A) 0.3 k/uL (0-1.0); Monocytes % (A) 4 %; Neutrophils # (A) 4.9 k/uL (1.3-7.7); Neutrophils % (A) 64 %; Platelet Count 335 k/uL (150-450); RDW 14.4 % (11.5-15.5); WBC 7.7 k/uL (3.8-10.6)
[2023-05-08 13:58] LABS: ALT 21 U/L (4-34); AST 23 U/L (14-36); African American GFR (CKD) >90 (>60 ml/min/1.73 sqM); Albumin 3.9 g/dL (3.5-5.0); Alkaline Phosphatase 83 U/L (38-126); Anion Gap 6 mmol/L; Blood Urea Nitrogen 10 mg/dL (7-17); C Reactive Protein 2.9 mg/dL (<1.0); Carbon Dioxide 24 mmol/L (22-30); Chloride 108 mmol/L (98-107); Glucose 82 mg/dL (74-99); Non-African American GFR(CKD) >90 (>60 ml/min/1.73 sqM); Potassium 4.5 mmol/L (3.5-5.1); Sodium 138 mmol/L (137-145); Total Bilirubin 0.3 mg/dL (0.2-1.3); Total Protein 6.4 g/dL (6.3-8.2)
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
[2023-05-08 14:15] LABS: Erythrocyte Sedimentation Rate 7 mm/hr (0-20)
--- NOTE | 2023-05-08 14:15 | CT ---
EXAMINATION TYPE: CT angio head neck CT DLP: 365.5 mGycm, Automated exposure control for dose reduction was used. DATE OF EXAM: 05/08/2023 2:06 PM COMPARISON: CT head same day. CLINICAL INDICATION:Female, 47 years old with history of headache; PHH, headache TECHNIQUE: Axially acquired helical CT angiogram of the head and neck was obtained with contrast. Axi al images are supplemented with 3D reconstructions which [facility] NASCET criteria used. Contrast used:65ml mL of Isovue 370 with IV Contrast, Oral contrast used: None. FINDINGS: CTA HEAD: No evidence of acute intracranial hemorrhage, mass effect, or midline shift. The ventricles, sulci, a nd cisterns are unremarkable. The visualized portions of the internal carotid arteries, middle cerebral arteries, anterior cerebral arteries, and posterior cerebral arteries are patent. The basilar and vertebral arteries are patent. CTA NECK: Right Carotid System: The common carotid artery and external carotid artery are patent. The carotid bifurcation demonstrate s no evidence of hemodynamically significant stenosis. The remaining portions of the internal carotid artery demonstrate normal size without significant narrowing. Left Carotid System: The common carotid artery and external carotid artery are patent. The carotid bifurcation demonstrate s no evidence of hemodynamically significant stenosis. The remaining portions of the internal carotid artery demonstrate normal size without significant narrowing. Vertebral arteries are patent without evidence hemodynamically significant stenosis. There is a three-vessel aortic arch. The origins of the great vessels are patent. No evidence of hemo dynamically significant stenosis. Fixation hardware to the lower cervical spine. Hardware appears intact. IMPRESSION: 1. No evidence of dissection of the cervical internal carotid arteries or vertebral arteries or any e vidence of significant stenosis at the carotid bifurcations. 2. No evidence of intracranial high-grade stenosis or intracranial aneurysm.
[2023-05-08] MEDS ORDERED: ORPHENADRINE 30 MG/ML 2 ML VIAL IVP STA (14:22)
[2023-05-08 16:31] VITALS: BP 98/66; PULSE 65; RESP 14
== END 2023-05-08 16:30 | disposition home or self-care (01) ==
LOC: EC 12:24
DX: M54.2 Cervicalgia (principal); J45.909 Unspecified asthma, uncomplicated; F41.9 Anxiety disorder, unspecified; F17.200 Nicotine dependence, unspecified, uncomplicated; Z88.0 Allergy status to penicillin; Z88.6 Allergy status to analgesic agent; Z79.51 Long term (current) use of inhaled steroids; Z79.899 Other long term (current) drug therapy
CPT/HCPCS: 99284 ×2; 96374 ×2; 96375 ×2; 36415; 80053; 85652; 85025; 86140; 70496; 70450; 70498; J2270; J2360; Q9967

== ENCOUNTER 2023-05-13 21:09 | Emergency (ER) | payer OTHER ==
[2023-05-13] MEDS ORDERED: LIDOCAINE 1% INJ 10MG/ML (30 ML VIAL-PF) SQ ONE (21:56)
--- NOTE | 2023-05-13 22:00 | ED ---
General Adult HPI - General Chief complaint: Wound/Laceration Stated complaint: Laceration in eyebrow Time Seen by Provider: 05/13/23 21:28 Source: patient, RN notes reviewed Mode of arrival: wheelchair Limitations: no limitations - History of Present Illness Initial comments: 47-year-old female presents to the emergency department chief complaint of fall. Patient states that she turned around and lost her footing and fell into the coffee table when she hit her right eyebrow and temporal region. She has a laceration to the right eyebrow. She admits to lightheadedness following the fall. She states that her last tetanus shot was in September. - Related Data Home Medications Medication Instructions Recorded Confirmed Gabapentin [Neurontin] 800 mg PO TID 02/03/15 09/15/21 Fluticasone Propion/Salmeterol 1 puff INHALATION RT-BID 03/16/21 09/15/21 [Advair 250-50 Diskus] HYDROcodone/APAP 10-325MG [Circle 1 tab PO Q6HR PRN 03/16/21 09/15/21 10-325] Montelukast [Singulair] 10 mg PO HS 03/16/21 09/15/21 methIMAzole [Tapazole] 2.5 mg PO HS 03/16/21 09/15/21 Albuterol Inhaler [Ventolin Hfa 2 puff INHALATION RT-Q4H PRN 04/28/21 09/15/21 Inhaler] Fexofenadine HCl [Anaya Allergy] 180 mg PO DAILY 09/15/21 09/15/21 Previous Rx's Medication Instructions Recorded Cyclobenzaprine [Flexeril] 10 mg PO TID PRN #15 tab 05/08/23 Lidocaine 5% Patch [Lidoderm] 1 patch TOPICAL DAILY 14 Days #14 05/08/23 patch Allergies Allergy/AdvReac Type Severity Reaction Status Date / Time ketorolac [From Toradol] Allergy Dyspnea Verified 05/13/23 21:17 NSAIDS (Non-Steroidal Allergy Dyspnea Verified 05/13/23 21:17 Anti-Inflamma Penicillins Allergy Rash/Hives Verified 05/13/23 21:17 Review of Systems ROS Statement: Those systems with pertinent positive or pertinent negative responses have been documented in the HPI. ROS Other: All systems not noted in ROS Statement are negative. Past Medical History Past Medical History: Asthma, Musculoskeletal Disorder, Thyroid Disorder Additional Past Medical History / Comment(s): ALLERGY INDUCED ASTHMA, chronic back pain, migraines, degenerative and herniated discs, spinal stenosis, neck pain. History of Any Multi-Drug Resistant Organisms: None Reported Past Surgical History: Back Surgery, Hysterectomy, Tonsillectomy Additional Past Surgical History / Comment(s): Cervical fusion and cervical decompression C4-5 then C5-6, REMOVAL OF HARDWARE from C5-C6. Past Anesthesia/Blood Transfusion Reactions: No Reported Reaction, Motion Sickness Past Psychological History: Anxiety Smoking Status: Current every day smoker Past Alcohol Use History: None Reported Past Drug Use History: None Reported - Past Family History Mother Family Medical History: No Reported History Father Family Medical History: No Reported History General Exam Limitations: no limitations General appearance: alert, in no apparent distress Head exam: Present: other (Laceration to right eyebrow about 3 cm) Eye exam: Present: normal appearance, PERRL, EOMI. Absent: scleral icterus, conjunctival injection, periorbital swelling ENT exam: Present: normal exam, mucous membranes moist Neck exam: Present: normal inspection, tenderness. Absent: meningismus, lymphadenopathy Respiratory exam: Present: normal lung sounds bilaterally. Absent: respiratory distress, wheezes, rales, rhonchi, stridor Cardiovascular Exam: Present: regular rate, normal rhythm, normal heart sounds. Absent: systolic murmur, diastolic murmur, rubs, gallop, clicks GI/Abdominal exam: Present: soft, normal bowel sounds. Absent: distended, tenderness, guarding, rebound, rigid Extremities exam: Present: normal inspection, full ROM, normal capillary refill. Absent: tenderness, pedal edema, joint swelling, calf tenderness Back exam: Present: normal inspection Neurological exam: Present: alert, oriented X3, CN II-XII intact, normal gait, other (GCS 15) Psychiatric exam: Present: normal affect, normal mood Skin exam: Present: warm, dry, intact, normal color. Absent: rash Course Vital Signs 05/13/23 05/13/23 21:15 23:06 Temperature 98.9 F Pulse Rate 107 H 111 H Respiratory 18 16 Rate Blood Pressure 120/79 122/77 O2 Sat by Pulse 98 98 Oximetry Procedures - Laceration Laceration #1 Consent Obtained: verbal consent Indication: laceration Site: face Size (cm): 3 Description: linear Depth: simple, single layer Anesthetic Used: lidocaine 1% Anesthesia Technique: local infiltration Pre-repair: wound explored, irrigated extensively Type of Sutures: other (monofilament) Size of Sutures: 6-0 Number of Sutures: 8 Technique: simple, interrupted Patient Tolerated Procedure: well, no complications Medical Decision Making - Medical Decision Making Was pt. sent in by a medical professional or institution (, DANIEL, RECEIVING TELLER, urgent care, hospital, or shelter...) When possible be specific @ -No Did you speak to anyone other than the patient for history (EMS, parent, family, police, friend...)? What history was obtained from this source @ -No Did you review nursing and triage notes (agree or disagree)? Why? @ -I reviewed and agree with nursing and triage notes Were old charts reviewed (outside hosp., previous admission, EMS record, old EKG, old radiological studies, urgent care reports/EKG's, shelter records)? Report findings @ -No old charts were reviewed Differential Diagnosis (chest pain, altered mental status, abdominal pain women, abdominal pain men, vaginal bleeding, weakness, fever, dyspnea, syncope, headache, dizziness, GI bleed, back pain, seizure, CVA, palpatations, mental health, musculoskeletal)? @ -Differential Headache: Migraine, tension, cluster, carbon monoxide, central venous thrombosis, pension karma temporal arteritis, acute closure glaucoma, intercranial hemorrhage, mast oiditis, sinusitis, head injury, this is not meant to be an all-inclusive list. Laceration, abrasion EKG interpreted by me (3pts min.). @ -None X-rays interpreted by me (1pt min.). @ -None done CT interpreted by me (1pt min.). @ -CT brain and C-spine showed no evidence for acute intracranial process, fusion hardware in place U/S interpreted by me (1pt. min.). @ -None done What testing was considered but not performed or refused? (CT, X-rays, U/S, labs)? Why? @ -None What meds were considered but not given or refused? Why? @ -None Did you discuss the management of the patient with other professionals (professionals i.e. DANIEL Alejandre, RECEIVING TELLER, lab, RT, psych nurse, social media job titles, topography technician, teacher, business practices officer, lining caser)? Give summary @ -No Was smoking cessation discussed for >3mins.? @ -No Was critical care preformed (if so, how long)? @ -No Were there social determinants of health that impacted care today? How? (Homelessness, low income, unemployed, alcoholism, drug addiction, transportation, low edu. Level, literacy, decrease access to med. care, custodial, rehab)? @ -No Was there de-escalation of care discussed even if they declined (Discuss DNR or withdrawal of care, Hospice)? DNR status @ -No What co-morbidities impacted this encounter? (DM, HTN, Smoking, COPD, CAD, Cancer, CVA, ARF, Chemo, Hep., AIDS, mental health diagnosis, sleep apnea, morbid obesity)? @ -None Was patient admitted / discharged? Hospital course, mention meds given and route, prescriptions, significant lab abnormalities, going to OR and other pertinent info. @ -Discharged, Patient presented to emergency department complaining of head injury. She tripped and hit her face on the table corner. She is reporting hea dache. Laceration was irrigated and repaired with 8 simple interrupted sutures. Advised to have sutures removed early next week. CT brain and Cspine showed no evidence for acute intracranial process, fusion hardware in place. Patient discharged in stable condition, Return precautions discussed. Case discussed with my attending, Dr. Bejarano Undiagnosed new problem with uncertain prognosis? @ -No Drug Therapy requiring intensive monitoring for toxicity (Heparin, Nitro, Insulin, Cardizem)? @ -No Were any procedures done? @ -laceration repair Diagnosis/symptom? @ -laceration Acute, or Chronic, or Acute on Chronic? @ -acute Uncomplicated (without systemic symptoms) or Complicated (systemic symptoms)? @ -uncomplicated Side effects of treatment? @ -No Exacerbation, Progression, or Severe Exacerbation? @ -No Poses a threat to life or bodily function? How? (Chest pain, [place], [place], pneumonia, PE, COPD, DKA, ARF, appy, cholecystitis, CVA, Diverticulitis, Homicidal, Suicidal, threat to staff... and all critical care pts) @ -No Disposition Clinical Impression: Laceration Disposition: HOME SELF-CARE Condition: Stable Instructions (If sedation given, give patient instructions): Care For Your Stitches (ED) Additional Instructions: Please follow up with your primary care provider early next week for suture removal. Return to the emergency department for new or worsening symptoms. Is patient prescribed a controlled substance at d/c from ED?: No Referrals: Mylene Rodriguez MD [Primary Care Provider] - 1-2 days
[2023-05-13] MEDS ORDERED: ACETAMINOPHEN TAB 325 MG TAB PO STA (22:32)
[2023-05-13 23:08] VITALS: RESP 16
[2023-05-13] MEDS ORDERED: MORPHINE SULFATE 4 MG/ML SYRINGE IM STA (23:25)
--- NOTE | 2023-05-14 01:03 | CT ---
EXAM: CT Head Without Intravenous Contrast CLINICAL HISTORY: ITS.REASON CT Reason: fall TECHNIQUE: Axial computed tomography images of the head/brain without intravenous contrast. CTDI is 45.2 mGy and DLP is 1011.5 mGy-cm. This CT exam was performed using one or more of the following dose reduction techniques: automated exposure control, adjustment of the mA and/or kV according to patient size, and/or use of iterative reconstruction technique. COMPARISON: No relevant prior studies available. FINDINGS: Brain: Unremarkable. No hemorrhage. No significant white matter disease. No edema. Oleary-white matter differentiation maintained. Ventricles: Unremarkable. No hydrocephalus. Bones/joints: Unremarkable. No acute fracture. Soft tissues: Scalp laceration lateral to the right orbit. Sinuses: Retained mucoid secretions in the left maxillary sinus. Paranasal sinuses otherwise clear. Mastoid air cells: Unremarkable as visualized. No mastoid effusion. IMPRESSION: Scalp laceration lateral to the right orbit. No acute intracranial findings. EXAM: CT Cervical Spine Without Intravenous Contrast CLINICAL HISTORY: ITS.REASON CT Reason: fall TECHNIQUE: Axial computed tomography images of the cervical spine without intravenous contrast. CTDI is 8.2 mGy and DLP is 236.3 mGy-cm. This CT exam was performed using one or more of the following dose reduction techniques: automated exposure control, adjustment of the mA and/or kV according to patient size, and/or use of iterative reconstruction technique. COMPARISON: No relevant prior studies available. FINDINGS: Vertebrae: Unremarkable. No acute fracture or subluxation. Anterior cervical discectomy and fusion C4-C7 without hardware complication. Discs/spinal canal/neural foramina: Disc heights maintained. No spinal canal or foraminal narrowing. Soft tissues: Unremarkable. Lung apices: Pleural-parenchymal scarring at the lung apices. Nonspecific ground-glass lung attenuation. IMPRESSION: 1. No acute osseous findings. 2. Visualized lung carpenter demonstrate nonspecific ground-glass attenuation. Cannot exclude mild pulmonary edema or atypical infectious process.
[2023-05-14 01:22] VITALS: BP 128/69; PULSE 76; TEMP 98
== END 2023-05-14 01:22 | disposition home or self-care (01) ==
LOC: EC 21:09
DX: S01.111A Laceration without foreign body of right eyelid and periocular area, initial encounter (principal); J45.909 Unspecified asthma, uncomplicated; F41.9 Anxiety disorder, unspecified; F17.200 Nicotine dependence, unspecified, uncomplicated; Z79.51 Long term (current) use of inhaled steroids; Z79.899 Other long term (current) drug therapy; Z88.6 Allergy status to analgesic agent; Z88.0 Allergy status to penicillin; Z88.8 Allergy status to other drugs, medicaments and biological substances; W18.30XA Fall on same level, unspecified, initial encounter
CPT/HCPCS: 72125; 70450; 99283; 96372; 12013; J2270; J2001

== ENCOUNTER → 2024-01-04 | Outpatient (CLI) | payer OTHER ==
--- NOTE | 2024-01-05 10:19 | MM ---
Reason for Exam: Screening (asymptomatic). Last mammogram was performed 3 year(s) and 4 month(s) ago. Patient History: Menarche at age 10. First Full-Term at age 17. Hysterectomy at age 31. Postmenopausal. Patient has history of breast feeding. Patient used Hormonal Contraceptives for 3 years. Risk Values: Rashida 5 year model risk: 0.7%. NCI Lifetime model risk: 7.3%. Prior Study Comparison: 11/09/2016 Bilateral Screening Mammogram, [facility]. 05/23/2019 Bilateral Screening Mammogram, [facility]. 09/23/2020 Bilateral Screening Mammogram, [facility]. Tissue Density: The breasts are heterogeneously dense, which may obscure small masses. Findings: Analyzed By CAD. There is no suspicious group of microcalcifications or new suspicious mass in either breast. Overall Assessment: Negative, BI-RAD 1 Management: Screening Mammogram of both breasts in 1 year. . Patient should continue monthly self-breast exams. A clinical breast exam by your physician is recommended on an annual basis. This exam should not preclude additional follow-up of suspicious palpable abnormalities. Note on Rashida scores and lifetime risk: 1. A Rashida score greater than 3% is considered moderate risk. If this is the case, consider specialist referral to assess eligibility for a risk reducing agent. 2. If overall lifetime risk for the development of breast cancer is 20% or higher, the patient may qualify for future screening with alternating mammogram and breast MRI. Electronically signed and approved by: Luis Pepper M.D. Radiologis
== END | disposition home or self-care (01) ==
LOC: RADMAMWWP 09:01
PROVIDERS: ATTEND Internal Medicine
DX: Z12.31 Encounter for screening mammogram for malignant neoplasm of breast (principal); Z78.0 Asymptomatic menopausal state
CPT/HCPCS: 77063; 77067

== ENCOUNTER → 2024-04-02 | Outpatient (CLI) | payer OTHER ==
--- NOTE | 2024-04-02 15:15 | XR ---
EXAMINATION TYPE: XR lumbosacral spine min 4V DATE OF EXAM: 04/02/2024 1:45 PM CLINICAL INDICATION:Female, 48 years old with history of R52 pain/fall; PHH. Initial encounter. COMPARISON: None TECHNIQUE: XR lumbosacral spine min 4V - Frontal, lateral , bilateral oblique and coned in L5-S1 late ral views of the spine. FINDINGS: No evidence of any acute osseous pathology. No evidence of loss of vertebral body height i s seen. There is normal AP alignment of the lumbar vertebral bodies. Possible mild left convex scoli osis versus suboptimal positioning during the radiograph acquisition. No significant degeneration c hanges throughout the spine. IMPRESSION: 1. No acute fracture. 2. No significant degenerative change
--- NOTE | 2024-04-02 15:18 | XR ---
EXAMINATION TYPE: XR thoracic spine complete DATE OF EXAM: 04/02/2024 1:45 PM CLINICAL INDICATION:Female, 48 years old with history of R52 pain/fall; PHH. Initial encounter. COMPARISON: None. TECHNIQUE: XR thoracic spine complete views of the spine in Frontal and lateral projections. . FINDINGS: No evidence of acute fracture. There is no evidence of disk space narrowing or loss of vertebral bod y height. There is normal alignment of the thoracic vertebral bodies. Incidental note of cervical spine fusion hardware C5-C6 IMPRESSION: No acute osseous pathology thoracic spine.
== END | disposition home or self-care (01) ==
LOC: RADXRMAIN 13:18
PROVIDERS: ATTEND Internal Medicine
DX: M54.6 Pain in thoracic spine (principal); M54.50 Low back pain, unspecified; W19.XXXA Unspecified fall, initial encounter
CPT/HCPCS: 72072; 72110

== ENCOUNTER → 2025-01-25 | Outpatient (CLI) | payer OTHER ==
--- NOTE | 2025-01-25 11:40 | CT ---
EXAMINATION TYPE: CT brain wo con DATE OF EXAM: 01/25/2025 COMPARISON: CT brain December 05, 2024 CLINICAL INDICATION: Female, 49 years old with history of S09.90XA UNSPECIFIED INJURY OF HEAD, VANESSAA Leonie ANDRES, Follow up on skull fracture and hematoma from CT scan 12/05/24 TECHNIQUE: CT scan of the head is performed without contrast. CT DLP: 1108.4 mGycm. Automated Exposure Control for Dose Reduction was Utilized. FINDINGS: There is no acute intracranial hemorrhage or midline shift identified on current study. S mall skull fracture through the adjacent left temporal bone is redemonstrated. Interval resolution of acute intracranial hemorrhage anterior aspect left middle cranial fossa. Ventricles and sulci within normal limits in size for patient's age. Oleary-white matter differentiation is preserved. The globes are intact and the visualized sinuses are clear. IMPRESSION: No acute intracranial hemorrhage or midline shift on current study. [facility], , 01/25/2025 11:38 AM
== END | disposition home or self-care (01) ==
LOC: RADCTMAIN 10:49
PROVIDERS: ATTEND Internal Medicine
DX: S02.82XA Fracture of other specified skull and facial bones, left side, initial encounter for closed fracture (principal); X58.XXXA Exposure to other specified factors, initial encounter
CPT/HCPCS: 70450